=== PATIENT | male | born 1950 | race Caucasian/White ===

== ENCOUNTER → 2016-10-02 | Outpatient (CLI) | payer OTHER ==
[~2016-10-02] MED LIST: OXYC-57 PO; SULF800T23 PO
[2016-10-02 14:43] LABS: URINE APPEARANCE CLEAR (CLEAR); URINE BILIRUBIN NEG (NEG); URINE COLOR YELLOW; URINE NITRITE NEG (NEG); URINE SPECIFIC GRAVITY 1.022 (1.000-1.030); UROBILINOGEN NEG (NEG)
[2016-10-02 14:49] LABS: MANUAL MICROSCOPIC REQUIRED? NO; REVIEW REQ? NO
== END | disposition home or self-care (01) ==
LOC: C.LAB 12:19
PROVIDERS: ATTEND Nurse Practitioner Adult Health
DX: R31.9 Hematuria, unspecified (principal)

== ENCOUNTER 2016-10-29 09:35 | Emergency (ER) | payer OTHER ==
[~2016-10-29] VITALS: Ht 180.3 cm; Wt 103.9 kg
[2016-10-29 09:44] VITALS: TEMP 36.6; Ht 180.3 cm; Wt 103.9 kg
[2016-10-29] MEDS ORDERED: KETOROLAC TROMETHAMINE 30 MG/ML VIAL IV STA (10:36)
[2016-10-29] MEDS ORDERED: HYDROmorphone INJ 1 MG/ML SYR IV STA (10:36)
[2016-10-29] MEDS ORDERED: ONDANSETRON INJ 2 MG/ML 2 ML VIAL IV STA (10:36)
--- NOTE | 2016-10-29 10:42 | EMERGENCY ROOM VISIT NOTE ---
History Report prepared by Neelima: Larry Scales Under the Supervision of: Dr. Ishan Chung M.D. First contact with patient: 09:57 Chief Complaint: FLANK PAIN Stated Complaint: PAIN IN KIDNEY AND ABD. AREA History of Present Illness The patient is a 66 year old male who presents to the Emergency Room with complaints of worsening right flank pain for the past several days. The pain is currently rated 9/10 in severity. He also notes some abdominal pain. The patient was diagnosed with a kidney stone via CT scan approximately two weeks ago at the [place]. The patient was started on Flomax by Urology at the [place]. He has not had anything for pain today. The patient denies any prior history of kidney stones. Source of History: patient Onset: several days Position: back (right flank) Symptom Intensity: 9/10 Quality: other (kidney stone) Timing: worsening Associated Symptoms: + abdominal pain Review of Systems See HPI for pertinent positives & negatives. A total of 10 systems reviewed and were otherwise negative. Past Medical & Surgical Medical Problems: (1) Kidney stone Surgical Problems: (1) H/O heart artery stent Family History Heart disease Kidney disease Social History Smoking Status: Never Smoker Marital Status: Housing Status: lives with family Occupation Status: retired Current/Historical Medications Scheduled Sulfa/Trimethoprim (Bactrim Ds 800MG/160MG), 1 TAB PO BID Scheduled PRN Oxycodone/Acetaminophen 5MG/325MG (Percocet 5MG/325MG), 1-2 TAB PO Q4H PRN for Pain Allergies Uncoded Allergies: NKDA (Allergy, Unknown, 11/14/03) Physical Exam Vital Signs Date Time Temp Pulse Resp B/P Pulse Ox O2 Delivery O2 Flow Rate FiO2 10/29/16 13:36 74 16 108/67 95 10/29/16 12:32 72 16 132/67 96 Room Air 10/29/16 11:30 69 18 112/70 93 Room Air 10/29/16 10:52 66 10/29/16 10:52 71 18 133/78 96 Room Air 10/29/16 09:44 36.6 74 18 148/84 93 Room Air Physical Exam GENERAL: Patient is a healthy-appearing well-nourished HEAD: Normocephalic atraumatic EYES: Ocular movements intact pupils equal and react to light OROPHARYNX mucous membranes are moist no exudates present no erythema or edema present NECK: Supple no nuchal rigidity CHEST: Good equal expansion LUNGS: Clear and equal to auscultation CARDIAC: Normal S1 and S2 ABDOMEN: Soft nontender no guarding BACK: No CVA tenderness EXTREMITIES: No pain upon palpation normal muscle strength in all groups no clubbing cyanosis or edema NEURO: Patient is following commands is answering questions appropriately. Alert and oriented x3 Cranial Nerves 2-12 grossly intact Medical Decision & Procedures ER Provider Diagnostic Interpretation: Radiology results as stated below per my review and radiologist interpretation: KUB CLINICAL HISTORY: Pt c/o Rt sided flank pain pain COMPARISON STUDY: No previous studies for comparison. FINDINGS: Nonobstructive bowel pattern. Possible 3 mm calcification mid right ureter. 4 mm nonobstructing calcifications appear pole left kidney. IMPRESSION: 1. Compromised exam due to overlying bowel content 2. Possible 3 mm calcification overlying the central right ureter. 3. Nonobstructing calcification upper pole left kidney Electronically signed by: Bryant Arnett M.D. 10/29/2016 12:37 PM Dictated Date/Time: 10/29/2016 12:35 PM RENAL ULTRASOUND HISTORY: Flank pain Pt c/o Rt sided flank pain COMPARISON: None. FINDINGS: Right kidney: Maximum dimension 13 cm. Mild right renal hydronephrosis. Normal corticomedullary differentiation and cortical thickness. Left kidney: Maximum dimension 12.8 cm. No evidence for hydronephrosis. 4 mm nonobstructing calculus lower pole. Normal corticomedullary differentiation and cortical thickness. Bladder: No bladder wall thickening. The bilateral ureteral jets were identified. IMPRESSION: Mild right renal hydronephrosis. Electronically signed by: Bryant Arnett M.D. 10/29/2016 12:05 PM Dictated Date/Time: 10/29/2016 12:04 PM Laboratory Results 10/29/16 10:10 Red Blood Count 4.92, Mean Corpuscular Volume 87.2, Mean Corpuscular Hemoglobin 30.5, Mean Corpuscular Hemoglobin Concent 35.0, Mean Platelet Volume 9.1, Neutrophils (%) (Auto) 83.4, Lymphocytes (%) (Auto) 10.1, Monocytes (%) (Auto) 5.2, Eosinophils (%) (Auto) 1.0, Basophils (%) (Auto) 0.2, Neutrophils # (Auto) 8.05, Lymphocytes # (Auto) 0.98, Monocytes # (Auto) 0.50, Eosinophils # (Auto) 0.10, Basophils # (Auto) 0.02 10/29/16 10:10 Test 10/29/16 10:05 10/29/16 10:10 Urine Color DK YELLOW Urine Appearance CLEAR (CLEAR) Urine pH 5.5 (4.5-7.5) Urine Specific [place] 1.022 (1.000-1.030) Urine Protein TRACE (NEG) Urine Glucose (UA) NEG (NEG) Urine Ketones TRACE (NEG) Urine Occult Blood 3+ (NEG) Urine Nitrite NEG (NEG) Urine Bilirubin NEG (NEG) Urine Urobilinogen NEG (NEG) Urine Leukocyte Esterase SMALL (NEG) Urine WBC (Auto) 5-10 /hpf (0-5) Urine RBC (Auto) >30 /hpf (0-4) Urine Hyaline Casts (Auto) 1-5 /lpf (0-5) Urine Epithelial Cells (Auto) 5-10 /lpf (0-5) Urine Bacteria (Auto) NEG (NEG) White Blood Count 9.66 K/uL (4.8-10.8) Red Blood Count 4.92 M/uL (4.7-6.1) Hemoglobin 15.0 g/dL (14.0-18.0) Hematocrit 42.9 % (42-52) Mean Corpuscular Volume 87.2 fL (80-100) Mean Corpuscular Hemoglobin 30.5 pg (25-34) Mean Corpuscular Hemoglobin Concent 35.0 g/dl (32-36) Platelet Count 215 K/uL (130-400) Mean Platelet Volume 9.1 fL (7.4-10.4) Neutrophils (%) (Auto) 83.4 % Lymphocytes (%) (Auto) 10.1 % Monocytes (%) (Auto) 5.2 % Eosinophils (%) (Auto) 1.0 % Basophils (%) (Auto) 0.2 % Neutrophils # (Auto) 8.05 K/uL (1.4-6.5) Lymphocytes # (Auto) 0.98 K/uL (1.2-3.4) Monocytes # (Auto) 0.50 K/uL (0.11-0.59) Eosinophils # (Auto) 0.10 K/uL (0-0.5) Basophils # (Auto) 0.02 K/uL (0-0.2) RDW Standard Deviation 40.3 fL (36.4-46.3) RDW Coefficient of Variation 12.5 % (11.5-14.5) Immature Granulocyte % (Auto) 0.1 % Immature Granulocyte # (Auto) 0.01 K/uL (0.00-0.02) Anion Gap 9.0 mmol/L (3-11) Est Creatinine Clear Calc Drug Dose 95.3 ml/min Estimated GFR () 100.0 Estimated GFR (Non- 86.3 BUN/Creatinine Ratio 14.2 (10-20) Calcium Level 9.0 mg/dl (8.5-10.1) Total Bilirubin 0.6 mg/dl (0.2-1) Direct Bilirubin 0.1 mg/dl (0-0.2) Aspartate Amino Transf (AST/SGOT) 12 U/L (15-37) Alanine Aminotransferase (ALT/SGPT) 27 U/L (12-78) Alkaline Phosphatase 84 U/L (45-117) Total Protein 7.6 gm/dl (6.4-8.2) Albumin 4.1 gm/dl (3.4-5.0) Lipase 102 U/L (73-393) Labs reviewed by ED physician. Medications Administered Medications (Trade) Dose Ordered Sig/Farhad Route Start Time Stop Time Status Last Admin Dose Admin Ketorolac Tromethamine (Toradol Inj) 30 mg NOW STAT IV 10/29/16 10:36 10/29/16 10:44 DC 10/29/16 10:50 30 MG Hydromorphone HCl (Dilaudid Inj) 1 mg NOW STAT IV 10/29/16 10:36 10/29/16 10:44 DC 10/29/16 10:50 1 MG Ondansetron HCl (Zofran Inj) 4 mg NOW STAT IV 10/29/16 10:36 10/29/16 10:44 DC 10/29/16 10:50 4 MG Ceftriaxone Sodium 1 gm 1 gm NOW STAT IV 10/29/16 11:10 10/29/16 11:11 DC 10/29/16 11:28 1 GM Sodium Chloride (Nss 1000ml) 1,000 ml @ 999 mls/hr Q1H1M STAT IV 10/29/16 11:10 10/29/16 12:10 DC 10/29/16 11:29 999 MLS/HR ED Course 1034: Past medical records reviewed. The patient was evaluated in room A12a. A complete history and physical examination was performed. 1036: Zofran 4 mg IV, Dilaudid 1 mg IV, Toradol 30 mg IV. 1110: NSS 1000 ml @ 999 mls/hr, Rocephin 1 gm IV. 1300: Reassessed the patient. His would like for him to be admitted for insurance co-pay. I discussed the treatment plan with them. He verbalized understanding and agreement. The patient is ready for discharge. Medical Decision Differential diagnosis: Etiologies such as renal colic, appendicitis, diverticulitis, mesenteric ischemia, aortic pathology, infections, inflammatory bowel disease, PUD, biliary pathology, UTI, as well as others were entertained. This is a 66-year-old male who presents emergency department complaining of right-sided flank pain. Patient has a history of kidney stones and recent he had a CAT scan performed. For this reason I felt that we could bypass radiation have the patient sent for KUB as well as an ultrasound. This showed mild hydronephrosis and a possible 3 mm stone. An IV was established, patient given Toradol, normal normal saline bolus, Dilaudid. I do believe that the patient will probably pass this on his own he was given pain medication for home. Patient was in agreement with the treatment plan. Impression Primary Impression: Kidney stone Scribe Attestation The scribe's documentation has been prepared under my direction and personally reviewed by me in its entirety. I confirm that the note above accurately reflects all work, treatment, procedures, and medical decision making performed by me. Departure Information Dispostion Home / Self-Care Prescriptions Sulfa/Trimethoprim (Bactrim Ds 800MG/160MG) Tab 1 TAB PO BID for 10 Days, #20 TAB Prov: Ishan Chung MD 10/29/16 Oxycodone/Acetaminophen 5MG/325MG (PERCOCET 5MG/325MG) Tab 1-2 TAB PO Q4H Y for Pain, #14 TAB Prov: Ishan Chung MD 10/29/16 Referrals Ernesto Ghosh M.D. (PCP) Forms HOME CARE DOCUMENTATION FORM, IMPORTANT VISIT INFORMATION, School Instructions, Work Instructions Patient Instructions Kidney Stones - [facility], Kidney Stones Expectant Therapy, Kidney Stones Identify, Kidney Stones Prevent, Kidney Stones Risk, My [facility] Additional Instructions Keep taking flomax You received narcotic or benzodiazepene medication while in the emergency room today. Do not drive, operate heavy machinery, or drink alcohol under the influence of this medication. Take 600 mg Ibuprofen every 6 hours Take Percocet for breakthrough pain You have been examined and treated today on an emergency basis only. This is not a substitute for, or an effort to provide, complete comprehensive medical care. It is impossible to recognize and treat all injuries or illnesses in a single emergency department visit. It is therefore important that you follow up closely with Dr Ghosh. Call as soon as possible for an appointment. Thank you for your time and consideration. I look forward to speaking with you again soon. Please don't hesitate to call us if you have any questions.
[2016-10-29 10:54] LABS: BASO % 0.2 %; BASO ABS # 0.02 K/uL (0-0.2); COMPLETE YES; HEMATOCRIT 42.9 % (42-52); IG% 0.1 %; LYMPH % 10.1 %; LYMPH ABS # 0.98 K/uL (1.2-3.4); MEAN CELL VOLUME 87.2 fL (80-100); MEAN CORPUSCULAR HEMOGLOBIN 30.5 pg (25-34); MEAN PLATELET VOLUME 9.1 fL (7.4-10.4); MONO % 5.2 %; NEUT % 83.4 %; PLATELET COUNT 215 K/uL (130-400); RED BLOOD COUNT 4.92 M/uL (4.7-6.1); WHITE BLOOD COUNT 9.66 K/uL (4.8-10.8)
[2016-10-29 10:57] LABS: URINE APPEARANCE CLEAR (CLEAR); URINE BILIRUBIN NEG (NEG); URINE COLOR DK YELLOW; URINE NITRITE NEG (NEG); URINE PH 5.5 (4.5-7.5); URINE SPECIFIC GRAVITY 1.022 (1.000-1.030); UROBILINOGEN NEG (NEG); ZZUR CULT IF INDIC CLEAN CATCH NO
[2016-10-29 10:58] LABS: MANUAL MICROSCOPIC REQUIRED? NO; REVIEW REQ? NO
[2016-10-29 11:05] LABS: BUN/CREATININE RATIO 14.2 (10-20); CREATININE 0.91 mg/dl (0.60-1.40); POTASSIUM 4.3 mmol/L (3.5-5.1)
[2016-10-29] MEDS ORDERED: SODIUM CHLORIDE 0.9% 1000ML 1,000 ML IV STA (11:10)
[2016-10-29] MEDS ORDERED: CEFTRIAXONE SOD INJ 1 GM ADDVIAL IV STA (11:10)
--- NOTE | 2016-10-29 12:06 | DIAGNOSTIC IMAGING REPORT ---
RENAL ULTRASOUND HISTORY: Flank pain Pt c/o Rt sided flank pain COMPARISON: None. FINDINGS: Right kidney: Maximum dimension 13 cm. Mild right renal hydronephrosis. Normal corticomedullary differentiation and cortical thickness. Left kidney: Maximum dimension 12.8 cm. No evidence for hydronephrosis. 4 mm nonobstructing calculus lower pole. Normal corticomedullary differentiation and cortical thickness. Bladder: No bladder wall thickening. The bilateral ureteral jets were identified. IMPRESSION: Mild right renal hydronephrosis. Electronically signed by: Bryant Arnett M.D. 10/29/2016 12:05 PM Dictated Date/Time: 10/29/2016 12:04 PM
[2016-10-29] MEDS ORDERED: METOCLOPRAMIDE HCL INJ 5 MG/ML 2 ML VIAL IV STA (12:12)
--- NOTE | 2016-10-29 12:38 | DIAGNOSTIC IMAGING REPORT ---
KUB CLINICAL HISTORY: Pt c/o Rt sided flank pain pain COMPARISON STUDY: No previous studies for comparison. FINDINGS: Nonobstructive bowel pattern. Possible 3 mm calcification mid right ureter. 4 mm nonobstructing calcifications appear pole left kidney. IMPRESSION: 1. Compromised exam due to overlying bowel content 2. Possible 3 mm calcification overlying the central right ureter. 3. Nonobstructing calcification upper pole left kidney Electronically signed by: Bryant Arnett M.D. 10/29/2016 12:37 PM Dictated Date/Time: 10/29/2016 12:35 PM
[2016-10-29] MEDS ORDERED: SULF800T23 PO (13:08)
[2016-10-29] MEDS ORDERED: OXYC-57 PO (13:08)
[2016-10-29 13:36] VITALS: BP 108/67; PULSE 74; O2SAT 95
== END 2016-10-29 13:37 | disposition home or self-care (01) ==
LOC: C.EDB 09:36 → C.EDA 13:37
DX: N13.2 Hydronephrosis with renal and ureteral calculous obstruction (principal); Z95.5 Presence of coronary angioplasty implant and graft

== ENCOUNTER 2017-11-04 10:15 | Inpatient (IN) | payer OTHER ==
[~2017-11-04] VITALS: Ht 177.8 cm; Wt 98.3 kg
[~2017-11-04 10:15] MED LIST changes: +ALT/25 PO; +ASPI-435 PO; +ATOR-22 PO; +COEN100C6 PO; +GLUCTAB7 PO; +MULT-506 PO; +OMEG10007 PO; -OXYC-57 PO; -SULF800T23 PO
[2017-11-04] MEDS ORDERED: SODIUM CHLORIDE 0.9% 1000ML 500 ML IV STA (11:26)
--- NOTE | 2017-11-04 11:30 | EMERGENCY ROOM VISIT NOTE ---
History Report prepared by Neelima: Brady Valentine Under the Supervision of: Dr. Haris Sim M.D. First contact with patient: 11:21 Chief Complaint: SHORTNESS OF BREATH Stated Complaint: SOB History of Present Illness The patient is a 67 year old male who presents to the Emergency Room after referral from his primary care physician with complaints of worsening shortness of breath that he has been experiencing for the past several weeks. Per the patient's PCP the patient was complaining of shortness of breath with a cough 3 weeks ago. He was placed on an Azithromycin Pac and then later Levaquin secondary to a diagnosis of pneumonia. The patient states that since finishing these medications he has become even more short of breath. He notes that he cannot walk around his house without becoming winded, which is very unusual for him. He is still coughing, especially when he is laying in bed at night. There is some chest "tightness" but this is only present with the cough. The patient has no history of COPD or myocardial infarction. He has had a coronary stent placed secondary to a blockage, this was roughly 14 years ago. Source of History: patient Onset: 3+ weeks Position: other (Respiratory) Quality: other (SOB) Timing: worsening Modifying Factors (Worsening): exertion (walking), movement Associated Symptoms: + cough, + chest pain (tightness only with cough) Review of Systems See HPI for pertinent positives & negatives. A total of 10 systems reviewed and were otherwise negative. Past Medical & Surgical Medical Problems: (1) Cough (2) Dyspnea (3) Kidney stone Surgical Problems: (1) H/O heart artery stent Family History Heart disease Kidney disease Social History Smoking Status: Never Smoker Marital Status: Housing Status: lives with family Occupation Status: retired Current/Historical Medications Scheduled Aspirin (Aspirin 81), 81 MG PO DAILY Atorvastatin (Lipitor), 20 MG PO HS Coenzyme Q10 (Ubidecarenone) (Co-Enzyme Q10), 1 CAP PO DAILY Fish Oil (Mather-3), 1 CAP PO DAILY Gubuvmjbctk-Ldymkwlmiii-Bwi C- (Glucosamine Chondroitin), 1 TAB PO DAILY Multivitamin (Multivitamin), 1 TAB PO DAILY Ramipril (Altace), 2.5 MG PO QAM Allergies Coded Allergies: No Known Allergies (Unverified , 11/04/17) Physical Exam Vital Signs Date Time Temp Pulse Resp B/P (MAP) Pulse Ox O2 Delivery O2 Flow Rate FiO2 11/04/17 14:55 86 20 123/78 93 11/04/17 13:07 85 18 140/86 93 Room Air 11/04/17 11:36 94 Room Air 11/04/17 10:22 93 Room Air 11/04/17 10:20 36.4 91 18 122/82 93 Room Air Physical Exam GENERAL: Patient is in no acute distress. HEENT: No acute trauma, normocephalic atraumatic, mucous membranes moist, no nasal congestion, no scleral icterus. NECK: No stridor, no adenopathy, no meningismus, trachea is midline. LUNGS: Clear to auscultation bilaterally, no wheeze, no rhonchi, breath sounds equal. HEART: Tachycardic rate with a regular rhythm, no murmurs. ABDOMEN: Soft, nontender, bowel sounds positive, no hernias, no peritonitis. EXTREMITIES: No cyanosis or edema, full range of motion of all the joints without pain or difficulty, no signs for acute trauma. NEUROLOGIC: Oriented x 3, no acute motor or sensory deficits, no focal weakness. SKIN: No rash, no jaundice, no diaphoresis. Medical Decision & Procedures ER Provider Diagnostic Interpretation: Radiology results as stated below per my review and radiologist interpretation: CHEST ONE VIEW PORTABLE CLINICAL HISTORY: EVALUATE RESPIRATORY DISTRESS.DYSPNEA dyspnea COMPARISON STUDY: No previous studies for comparison. FINDINGS: Diffuse interstitial infiltrative change throughout both hemithoraces. This may be acute or chronic. Diaphragms are smooth. There are no consolidative infiltrates. IMPRESSION: Diffuse bilateral parenchymal fibrosis versus diffuse bilateral parenchymal interstitial infiltrative change. The above report was generated using voice recognition software. It may contain grammatical, syntax or spelling errors. Electronically signed by: Bryant Arnett M.D. 11/04/2017 12:12 PM Dictated Date/Time: 11/04/2017 12:12 PM (CHEST FOR PE) ANGIO WITH CT DOSE: 592.10 mGycm HISTORY: 67 years-old Male presents with acute shortness of breath TECHNIQUE: Multiple CTA images of the chest were obtained after the intravenous administration of 93 ml Optiray 320. Coronal and sagittal MIPS were obtained from the axial data set and were submitted for review. A dose lowering technique was utilized adhering to the principles of ALARA. COMPARISON: Chest radiograph of same day. FINDINGS: CTA: Heart is normal in size without pericardial effusion. Coronary arterial disease. The thoracic aorta is normal in course and caliber without aneurysm or dissection. Mild to moderate atherosclerosis of the thoracic aorta. The left vertebral artery emanates strictly from the aortic arch. Imaged great vessels appear to be patent. Mild reflux of contrast into the IVC. The pulmonary arterial tree is opacified to level of the proximal subsegmental branches and demonstrates no focal filling defects to suggest pulmonary thromboembolic disease. CT CHEST: Calcifications are noted within the right thyroid lobe. There are multiple calcified hilar and mediastinal lymph nodes present. Multiple calcified granulomas of the lungs also seen. There are extensive bilateral multilobar distribution of segmental reticular and groundglass opacities within a peripheral apical to basilar predominant distribution. There is of relative sparing are noted bilaterally, notably within the right middle lobe lateral segment. Additionally there is suggestion of mild bilateral interlobular septal thickening. No significant honeycombing or bronchiectasis identified. There is however mild thickening of the bronchi. No significant air trapping identified. Dystrophic airways appear patent. Imaged upper abdominal structures are within normal limits. The bones appear intact. IMPRESSION: 1. Extensive bilateral multilobar distribution of segmental reticular and groundglass opacities within a peripheral apical to basilar predominant distribution are noted with mild thickening of the bronchovascular bundles. No honeycombing or significant traction bronchiectasis identified. These findings suggest NSIP pattern of disease with differential considerations including but not limited to connective tissue disorder, autoimmune disease, drug induced lung disease, occupational exposure or hypersensitivity pneumonitis among other etiologies. Pulmonology consultation recommended. 2. No acute aortic pathology or evidence of pulmonary thromboembolic disease. 3. Prior granulomatous disease. The above report was generated using voice recognition software. It may contain grammatical, syntax or spelling errors. Electronically signed by: Oumar Mora M.D. 11/04/2017 1:43 PM Dictated Date/Time: 11/04/2017 1:30 PM Laboratory Results 11/04/17 11:36 Red Blood Count 5.00, Mean Corpuscular Volume 84.2, Mean Corpuscular Hemoglobin 28.6, Mean Corpuscular Hemoglobin Concent 34.0, Mean Platelet Volume 8.7, Neutrophils (%) (Auto) 61.2, Lymphocytes (%) (Auto) 23.8, Monocytes (%) (Auto) 11.4, Eosinophils (%) (Auto) 2.8, Basophils (%) (Auto) 0.4, Neutrophils # (Auto ) 5.16, Lymphocytes # (Auto) 2.01, Monocytes # (Auto) 0.96, Eosinophils # (Auto ) 0.24, Basophils # (Auto) 0.03 11/04/17 11:36 Test 11/04/17 11:36 11/04/17 11:40 11/04/17 14:31 White Blood Count 8.43 K/uL (4.8-10.8) Red Blood Count 5.00 M/uL (4.7-6.1) Hemoglobin 14.3 g/dL (14.0-18.0) Hematocrit 42.1 % (42-52) Mean Corpuscular Volume 84.2 fL (80-100) Mean Corpuscular Hemoglobin 28.6 pg (25-34) Mean Corpuscular Hemoglobin Concent 34.0 g/dl (32-36) Platelet Count 304 K/uL (130-400) Mean Platelet Volume 8.7 fL (7.4-10.4) Neutrophils (%) (Auto) 61.2 % Lymphocytes (%) (Auto) 23.8 % Monocytes (%) (Auto) 11.4 % Eosinophils (%) (Auto) 2.8 % Basophils (%) (Auto) 0.4 % Neutrophils # (Auto) 5.16 K/uL (1.4-6.5) Lymphocytes # (Auto) 2.01 K/uL (1.2-3.4) Monocytes # (Auto) 0.96 K/uL (0.11-0.59) Eosinophils # (Auto) 0.24 K/uL (0-0.5) Basophils # (Auto) 0.03 K/uL (0-0.2) RDW Standard Deviation 39.7 fL (36.4-46.3) RDW Coefficient of Variation 13.1 % (11.5-14.5) Immature Granulocyte % (Auto) 0.4 % Immature Granulocyte # (Auto) 0.03 K/uL (0.00-0.02) Platelet Estimate NORMAL Anion Gap 6.0 mmol/L (3-11) Est Creatinine Clear Calc Drug Dose 102.8 ml/min Estimated GFR () 105.1 Estimated GFR (Non- 90.7 BUN/Creatinine Ratio 14.9 (10-20) Calcium Level 9.1 mg/dl (8.5-10.1) Magnesium Level 2.3 mg/dl (1.8-2.4) Total Bilirubin 0.4 mg/dl (0.2-1) Aspartate Amino Transf (AST/SGOT) 25 U/L (15-37) Alanine Aminotransferase (ALT/SGPT) 29 U/L (12-78) Alkaline Phosphatase 90 U/L (45-117) Troponin I < 0.015 ng/ml (0-0.045) Total Protein 8.2 gm/dl (6.4-8.2) Albumin 2.9 gm/dl (3.4-5.0) Globulin 5.3 gm/dl (2.5-4.0) Albumin/Globulin Ratio 0.5 (0.9-2) Thyroid Stimulating Hormone (TSH) 2.070 uIu/ml (0.300-4.500) Chemistry Specimen Hemolysis Influenza Type A Antigen Neg for Influ A (NEG) Influenza Type B Antigen Neg for Influ B (NEG) Pro-B-Type Natriuretic Peptide 57 pg/ml (0-900) Laboratory results reviewed by me. Medications Administered Medications (Trade) Dose Ordered Sig/Farhad Route Start Time Stop Time Status Last Admin Dose Admin Sodium Chloride 500 ml @ 999 mls/hr Q31M STAT IV 11/04/17 11:26 11/04/17 11:56 DC 11/04/17 11:54 999 MLS/HR Piperacillin Sod/ Tazobactam Sod (Zosyn Iv) 4.5 gm NOW STAT IV 11/04/17 14:00 11/04/17 14:03 DC 11/04/17 14:43 4.5 GM ECG Per My Interpretation Indication: SOB/dyspnea Rate (beats per minute): 74 Rhythm: normal sinus Findings: other (No ST elevation no PVCs. ) ED Course 1122: The patient was evaluated in room A10. A complete history and physical exam was performed. 1126: Ordered Sodium Chloride 500 mL @ 999 mL/hr IV. 1357: I discussed the case with Dr. Gomez - Pulmonology. He suggests an inpatient stay for the patient. 1400: Ordered Zosyn 4.5 gm IV. 1412: I checked on the patient at this time. He is agreeable to an inpatient stay. 1414: I discussed the case with Dr. Sd Pozo. He will evaluate the patient for further treatment. Medical Decision Differential Diagnosis includes; influenza, pneumonia, bronchitis, CHF, myocardial infarction, anemia, angina, pulmonary embolism. There is no leukocytosis or concerning anemia. No significant electrolyte abnormality, kidney failure or hepatitis. EKG shows a normal sinus rhythm, no acute ischemia. Cardiac enzyme testing 1 is not consistent with acute cardiac injury. Chest x-ray shows diffuse congestion, possibly pulmonary fibrosis or some sort of diffuse pneumonitis. Chest CT does not show PE, the same diffuse pattern was noted throughout the lung parenchyma as seen on chest film. The patient received IV saline. He was given IV Zosyn as antibiotic coverage. The patient's chest x-ray and CT scan are concerning for some sort of diffuse pulmonary disease/infection. This would explain his dyspnea of course. I discussed the case with the bottom polisher. I talked with case management as well as the on-call hospitalist. Further workup within the hospital is required. I spoke to the patient and he does seem in agreement. Medication Reconcilliation Current Medication List: was personally reviewed by me Blood Pressure Screening Patient's blood pressure: Elevated blood pressure Referred to hospitalist Consults Time Called: 1350 Consulting Physician: Dr. Gomez - Pulmonology Returned Call: [phone] I discussed the case with Dr. Patricia Grant Pulluli. He suggests an inpatient stay for the patient. Additional Consults: Time Called: 1410 Consulted Physician: Dr. Sd Pozo Returned Call: [phone] Additional Comments: I discussed the case with Dr. Sd Pozo. He will evaluate the patient for further treatment. Impression Primary Impression: SOB (shortness of breath) Additional Impressions: Pneumonitis Abnormal chest CT Scribe Attestation The scribe's documentation has been prepared under my direction and personally reviewed by me in its entirety. I confirm that the note above accurately reflects all work, treatment, procedures, and medical decision making performed by me. Departure Information Dispostion Being Evaluated By Hospitalist Referrals Ernesto Ghosh M.D. (PCP) Patient Instructions My [facility] Problem Qualifiers
[2017-11-04] MEDS ORDERED: OPTIRAY 320 IV PRN (11:45)
[2017-11-04 12:10] LABS: HEMATOCRIT 42.1 % (42-52); HEMOGLOBIN 14.3 g/dL (14.0-18.0); MEAN CELL VOLUME 84.2 fL (80-100); MEAN CORPUSCULAR HEMOGLOBIN 28.6 pg (25-34); RED CELL DISTRIBUTION WIDTH CV 13.1 % (11.5-14.5); RED CELL DISTRIBUTION WIDTH SD 39.7 fL (36.4-46.3); WHITE BLOOD COUNT 8.43 K/uL (4.8-10.8)
--- NOTE | 2017-11-04 12:14 | DIAGNOSTIC IMAGING REPORT ---
CHEST ONE VIEW PORTABLE CLINICAL HISTORY: EVALUATE RESPIRATORY DISTRESS.DYSPNEA dyspnea COMPARISON STUDY: No previous studies for comparison. FINDINGS: Diffuse interstitial infiltrative change throughout both hemithoraces. This may be acute or chronic. Diaphragms are smooth. There are no consolidative infiltrates. IMPRESSION: Diffuse bilateral parenchymal fibrosis versus diffuse bilateral parenchymal interstitial infiltrative change. The above report was generated using voice recognition software. It may contain grammatical, syntax or spelling errors. Electronically signed by: Bryant Arnett M.D. 11/04/2017 12:12 PM Dictated Date/Time: 11/04/2017 12:12 PM
[2017-11-04 12:28] LABS: ALBUMIN 2.9 gm/dl (3.4-5.0); ALT/SGPT 29 U/L (12-78); AST/SGOT 25 U/L (15-37); BLOOD UREA NITROGEN 12 mg/dl (7-18); CALCIUM 9.1 mg/dl (8.5-10.1); CARBON DIOXIDE 26 mmol/L (21-32); CREATININE 0.81 mg/dl (0.60-1.40); GLUCOSE 99 mg/dl (70-99); POTASSIUM 4.2 mmol/L (3.5-5.1); SODIUM 136 mmol/L (136-145)
[2017-11-04 12:35] LABS: INFLUENZA B ANTIGEN Neg for Influ B (NEG)
[2017-11-04 12:36] LABS: ALKALINE PHOSPHATASE 90 U/L (45-117); TOTAL PROTEIN 8.2 gm/dl (6.4-8.2)
[2017-11-04 12:38] LABS: MEAN PLATELET VOLUME 8.7 fL (7.4-10.4); PLATELET COUNT 304 K/uL (130-400)
[2017-11-04 12:58] LABS: BASO % 0.4 %; BASO ABS # 0.03 K/uL (0-0.2); EOS % 2.8 %; EOS ABS # 0.24 K/uL (0-0.5); IG# 0.03 K/uL (0.00-0.02); LYMPH % 23.8 %; LYMPH ABS # 2.01 K/uL (1.2-3.4); MONO % 11.4 %; MONO ABS # 0.96 K/uL (0.11-0.59); NEUT % 61.2 %; NEUT ABS # 5.16 K/uL (1.4-6.5)
--- NOTE | 2017-11-04 13:44 | DIAGNOSTIC IMAGING REPORT ---
(CHEST FOR PE) ANGIO WITH CT DOSE: 592.10 mGycm HISTORY: 67 years-old Male presents with acute shortness of breath TECHNIQUE: Multiple CTA images of the chest were obtained after the intravenous administration of 93 ml Optiray 320. Coronal and sagittal MIPS were obtained from the axial data set and were submitted for review. A dose lowering technique was utilized adhering to the principles of ALARA. COMPARISON: Chest radiograph of same day. FINDINGS: CTA: Heart is normal in size without pericardial effusion. Coronary arterial disease. The thoracic aorta is normal in course and caliber without aneurysm or dissection. Mild to moderate atherosclerosis of the thoracic aorta. The left vertebral artery emanates strictly from the aortic arch. Imaged great vessels appear to be patent. Mild reflux of contrast into the IVC. The pulmonary arterial tree is opacified to level of the proximal subsegmental branches and demonstrates no focal filling defects to suggest pulmonary thromboembolic disease. CT CHEST: Calcifications are noted within the right thyroid lobe. There are multiple calcified hilar and mediastinal lymph nodes present. Multiple calcified granulomas of the lungs also seen. There are extensive bilateral multilobar distribution of segmental reticular and groundglass opacities within a peripheral apical to basilar predominant distribution. There is of relative sparing are noted bilaterally, notably within the right middle lobe lateral segment. Additionally there is suggestion of mild bilateral interlobular septal thickening. No significant honeycombing or bronchiectasis identified. There is however mild thickening of the bronchi. No significant air trapping identified. Dystrophic airways appear patent. Imaged upper abdominal structures are within normal limits. The bones appear intact. IMPRESSION: 1. Extensive bilateral multilobar distribution of segmental reticular and groundglass opacities within a peripheral apical to basilar predominant distribution are noted with mild thickening of the bronchovascular bundles. No honeycombing or significant traction bronchiectasis identified. These findings suggest NSIP pattern of disease with differential considerations including but not limited to connective tissue disorder, autoimmune disease, drug induced lung disease, occupational exposure or hypersensitivity pneumonitis among other etiologies. Pulmonology consultation recommended. 2. No acute aortic pathology or evidence of pulmonary thromboembolic disease. 3. Prior granulomatous disease. The above report was generated using voice recognition software. It may contain grammatical, syntax or spelling errors. Electronically signed by: Oumar Mora M.D. 11/04/2017 1:43 PM Dictated Date/Time: 11/04/2017 1:30 PM
[2017-11-04] MEDS ORDERED: PIPERACILLIN/TAZOBACTAM 4.5 GM/100ML D5W IV STA (14:00)
[2017-11-04] MEDS ORDERED: ACETAMINOPHEN 325 MG TAB PO PRN (16:00)
[2017-11-04 16:46] VITALS: BP 135/79; PULSE 76; TEMP 36.8; O2SAT 92
--- NOTE | 2017-11-04 16:50 | History and Physical ---
History & Physical Date & Time of Service: Nov 04, 2017 at 16:35 Chief Complaint: SOB Primary Care Physician: Ernesto Ghosh M.D. History of Present Illness 67-year-old male followed by Dr. Ghosh. History of coronary artery disease and a few other problems as noted below. Status post coronary artery stenting several years ago; cardiac status is been stable since then. Physically active and a few months ago was hunting and walking his dog without chest pain or dyspnea. Developed respiratory tract symptoms in September that seemed like a typical cold. Experienced sinus congestion and a congested cough, no significant pharyngitis. No definite fever, but had occasional chills and sweats. Symptoms persisted. He was seen in clinic on 10/11/17 and prescribed a course of azithromycin that did not offer benefit. Re-evaluated in clinic 10/18/17. Chest x-ray demonstrated bilateral infiltrates consistent with pneumonia. Prescribed levofloxacin 500 mg daily for 10 days, prednisone 40 mg daily for 5 days, and albuterol MDI. Noted at best minimal improvement of his symptoms. Finish levofloxacin about 1 week ago. Persistent cough, productive of brownish and sometimes blood-tinged sputum. Increasing dyspnea to the point where he notes significant dyspnea walking from room to room in his home. No fever over the past few days. No chest pain. Retired. Formerly employed at [employer] where he worked in different departments. Exposed to copper, zinc, lead, silver, acidic fumes. No known exposure to asbestos. Has dogs and cats at home; no pet birds. No recent travel history. . Family History Heart disease Kidney disease Mother-diabetes, hypertension Father-heart disease Sister-cancer . Social History Smoking Status: Never Smoker Alcohol Use: occasionally Marital Status: Occupational Status: retired Allergies Coded Allergies: No Known Allergies (Unverified , 11/04/17) Home Medications Scheduled Aspirin (Aspirin 81), 81 MG PO DAILY Atorvastatin (Lipitor), 20 MG PO HS Coenzyme Q10 (Ubidecarenone) (Co-Enzyme Q10), 1 CAP PO DAILY Fish Oil (Erin-3), 1 CAP PO DAILY Pzdcmxtvmsm-Aaecelwywtr-Qmc C- (Glucosamine Chondroitin), 1 TAB PO DAILY Multivitamin (Multivitamin), 1 TAB PO DAILY Ramipril (Altace), 2.5 MG PO QAM Review of Systems Constitutional: + problem reported (As noted above in the HPI) Eyes: No worsening of vision ENT: No nasal symptoms, No sore throat Respiratory: + problem reported (As noted above in HPI) Cardiovascular: No chest pain, No edema, No palpitations Abdomen: No pain, No nausea, No vomiting, No diarrhea, No GI bleeding Musculoskeletal: + joint pain (Knee pain) Genitourinary - Male: + problem reported (Nocturia 1-2 times/night), No hematuria, No dysuria Neurologic: + problem reported (Frontal headaches) Endocrine: No excessive thirst, No excessive urination Hematologic / Lymphatic: No abnormal bleeding/bruising Integumentary: + problem reported (No recent tick bites), No rash, No new/ changing skin lesions Physical Exam Vital Signs Date Time Temp Pulse Resp B/P (MAP) Pulse Ox O2 Delivery O2 Flow Rate FiO2 11/04/17 16:31 73 138/76 92 11/04/17 14:55 86 20 123/78 93 11/04/17 13:07 85 18 140/86 93 Room Air 11/04/17 11:36 94 Room Air 11/04/17 10:22 93 Room Air 11/04/17 10:20 36.4 91 18 122/82 93 Room Air General Appearance: WD/WN, no apparent distress Head: normocephalic, atraumatic Eyes: normal inspection, PERRL, EOMI, sclerae normal, + pertinent finding ( Conjunctivae clear) ENT: normal ENT inspection, hearing grossly normal, + pertinent finding ( Oropharynx clear) Neck: thyroid normal, trachea midline Respiratory/Chest: no respiratory distress, no accessory muscle use, + pertinent finding (Few scattered rhonchi) Cardiovascular: regular rate, rhythm, no edema, no gallop, no JVD, no murmur Abdomen/GI: normal bowel sounds, non tender, soft, no organomegaly, no pulsatile mass Extremities/Musculoskelatal: no calf tenderness, + pertinent finding (No edema ; no digital clubbing) Neurologic/Psych: mammal keeper II-XII nml as tested (PERRL, EOMI, no facial palsy, no dysarthria), no motor/sensory deficits (motor strength extremities grossly intact), alert, normal mood/affect, oriented x 3 Skin: normal color, warm/dry, no rash, + pertinent finding (Seborrheic keratoses) Lymphatic: no adenopathy Diagnostics Laboratory Results Results Past 24 Hours Test 11/04/17 11:36 11/04/17 11:40 11/04/17 14:31 Range/Units White Blood Count 8.43 4.8-10.8 K/uL Red Blood Count 5.00 4.7-6.1 M/uL Hemoglobin 14.3 14.0-18.0 g/dL Hematocrit 42.1 42-52 % Mean Corpuscular Volume 84.2 80-100 fL Mean Corpuscular Hemoglobin 28.6 25-34 pg Mean Corpuscular Hemoglobin Concent 34.0 32-36 g/dl Platelet Count 304 130-400 K/uL Mean Platelet Volume 8.7 7.4-10.4 fL Neutrophils (%) (Auto) 61.2 % Lymphocytes (%) (Auto) 23.8 % Monocytes (%) (Auto) 11.4 % Eosinophils (%) (Auto) 2.8 % Basophils (%) (Auto) 0.4 % Neutrophils # (Auto) 5.16 1.4-6.5 K/uL Lymphocytes # (Auto) 2.01 1.2-3.4 K/uL Monocytes # (Auto) 0.96 0.11-0.59 K/uL Eosinophils # (Auto) 0.24 0-0.5 K/uL Basophils # (Auto) 0.03 0-0.2 K/uL RDW Standard Deviation 39.7 36.4-46.3 fL RDW Coefficient of Variation 13.1 11.5-14.5 % Immature Granulocyte % (Auto) 0.4 % Immature Granulocyte # (Auto) 0.03 0.00-0.02 K/uL Platelet Estimate NORMAL Sodium Level 136 136-145 mmol/L Potassium Level 4.2 3.5-5.1 mmol/L Chloride Level 104 98-107 mmol/L Carbon Dioxide Level 26 21-32 mmol/L Anion Gap 6.0 3-11 mmol/L Blood Urea Nitrogen 12 7-18 mg/dl Creatinine 0.81 0.60-1.40 mg/dl Est Creatinine Clear Calc Drug Dose 102.8 ml/min Estimated GFR () 105.1 Estimated GFR (Non- 90.7 BUN/Creatinine Ratio 14.9 10-20 Random Glucose 99 70-99 mg/dl Calcium Level 9.1 8.5-10.1 mg/dl Magnesium Level 2.3 1.8-2.4 mg/dl Total Bilirubin 0.4 0.2-1 mg/dl Aspartate Amino Transf (AST/SGOT) 25 15-37 U/L Alanine Aminotransferase (ALT/SGPT) 29 12-78 U/L Alkaline Phosphatase 90 45-117 U/L Troponin I < 0.015 0-0.045 ng/ml Total Protein 8.2 6.4-8.2 gm/dl Albumin 2.9 3.4-5.0 gm/dl Globulin 5.3 2.5-4.0 gm/dl Albumin/Globulin Ratio 0.5 0.9-2 Thyroid Stimulating Hormone (TSH) 2.070 0.300-4.500 uIu/ml Chemistry Specimen Hemolysis Influenza Type A Antigen Neg for Influ A NEG Influenza Type B Antigen Neg for Influ B NEG Pro-B-Type Natriuretic Peptide 57 0-900 pg/ml Microbiology Results 11/04/17 Blood Culture, Received Pending 11/04/17 Blood Culture, Received Pending Diagnostic Radiology CHEST ONE VIEW PORTABLE FINDINGS: Diffuse interstitial infiltrative change throughout both hemithoraces. This may be acute or chronic. Diaphragms are smooth. There are no consolidative infiltrates. IMPRESSION: Diffuse bilateral parenchymal fibrosis versus diffuse bilateral parenchymal interstitial infiltrative change. The above report was generated using voice recognition software. It may contain grammatical, syntax or spelling errors. Electronically signed by: Bryant Arnett M.D. 11/04/2017 12:12 PM CTA CHEST IMPRESSION: 1. Extensive bilateral multilobar distribution of segmental reticular and groundglass opacities within a peripheral apical to basilar predominant distribution are noted with mild thickening of the bronchovascular bundles. No honeycombing or significant traction bronchiectasis identified. These findings suggest NSIP pattern of disease with differential considerations including but not limited to connective tissue disorder, autoimmune disease, drug induced lung disease, occupational exposure or hypersensitivity pneumonitis among other etiologies. Pulmonology consultation recommended. 2. No acute aortic pathology or evidence of pulmonary thromboembolic disease. 3. Prior granulomatous disease. The above report was generated using voice recognition software. It may contain grammatical, syntax or spelling errors. Electronically signed by: Oumar Mora M.D. 11/04/2017 1:43 PM Dictated Date/Time: 11/04/2017 1:30 PM . EKG EKG performed at 1136 reviewed and demonstrated normal sinus rhythm at 74/minute , no acute ST or T-wave abnormalities. . Impression Assessment and Plan COUGH / DYSPNEA No prior history of pulmonary disease; good functional status before onset of current illness. Persistent cough and progressive dyspnea as outlined in the history of present illness. Initially treated with course of azithromycin without improvement. Subsequently treated with levofloxacin and prednisone without improvement. Chest x-ray and CT demonstrated bilateral densities as described above. History seems most consistent of infectious process, but consider interstitial lung disease and other etiologies. Will not restart antibiotic therapy or steroids at this time. Consult Pulmonary Medicine. Check 2-step pulse oximetry. CORONARY ARTERY DISEASE No anginal symptoms. No EKG changes. Continue aspirin and statin. VTE PROPHYLAXIS No anticoagulants at this time pending decisions about further diagnostic evaluation. SCDs. Ambulate. RESUSCITATION STATUS Discussed with patient. He does not have a living will. He would like resuscitation attempted in the event of a cardiopulmonary arrest if there is a reasonable chance of a meaningful recovery, but does not want prolonged extraordinary measures if prognosis is poor. Therefore, code status = "Level 1" (full resuscitation). DISPOSITION Admit to medical floor. Expected discharge to home. Family Medicine follow-up with Dr. Ghosh. . Resuscitation Status VTE Prophylaxis Will order VTE Prophylaxis: Yes
[2017-11-04 17:10] VITALS: Ht 177.8 cm; Wt 98.3 kg
[2017-11-04 18:19] LABS: INFLUENZA A PCR Neg for Influ A (NEG); INFLUENZA B PCR Neg for Influ B (NEG)
[2017-11-04 23:21] VITALS: BP 108/66; PULSE 88; TEMP 36.9; O2SAT 91
--- NOTE | 2017-11-05 01:28 | PULMONARY CONSULTATION ---
DATE OF CONSULTATION: 11/04/2017 TIME: 6:10 p.m. REPORT OF CONSULTATION: The patient was seen in room 452, bed 1. He is a 67-year-old male with chief complaint of cough and shortness of breath. His symptoms began in September. Prior to this, he had no respiratory issues. His was ill initially with similar symptoms. She actually had gone to the Emergency Room because of her symptoms. She ultimately cleared up, but as she was getting better, then he was getting sick. At first he was expectorating quite a bit of dark cream colored or yellow sputum. For 2 or 3 days, he coughed up a little blood mixed with it. This was back in September. He ultimately went to his doctor early in October. A chest x-ray was done. The patient does not know the actual results of the x-ray. He thinks they told him he may have pneumonia. Initially, he was treated with Zithromax. Subsequently, he was treated with a second antibiotic. He was not sure what the second antibiotic actually was. The second one seemed to help some. He noticed some decrease in his cough and had decrease in his sputum. Previously, the cough had been so bad that he was waking up frequently during the night time. It probably was Levaquin that he had for the second antibiotic. The patient has been short of breath with minimal exertion. He states his home is 44 feet long and he was winded walking the length of it on the inside. His energy level has been low. His appetite is decreased. He has lost between 15 and 20 pounds in the past 1-2 months. On one night, he had night sweats. On one day, he had chill. He is not aware of having any definite fevers. The patient has not traveled anywhere. He states he has hardly gotten out of the house for the past month. He has 1 dog at home. There is 1 indoor cat and multiple outdoor cats at home. The patient has never smoked. OCCUPATIONAL HISTORY: He worked at a [employer] from 1972 until 2007 where he had exposure to copper, zinc, lead, silver and various acid fumes. PAST SURGICAL HISTORY: Kidney stone removal by cystoscopy. PAST MEDICAL HISTORY: 1. Coronary artery disease with stent. 2. Hypercholesterolemia. 3. Kidney stones. FAMILY HISTORY: Positive for heart disease and kidney problems. SOCIAL HISTORY: Tobacco, never. ETOH -- rare. ALLERGIES: No known allergies. HOME MEDICATIONS: 1. Aspirin 81 mg daily. 2. Atorvastatin 20 mg at bedtime. 3. CoQ10. 4. Fish oil. 5. Glucosamine chondroitin. 6. Multivitamin. 7. Ramipril 2.5 mg daily. REVIEW OF SYSTEMS: Negative except for the above-mentioned complaints. PHYSICAL EXAMINATION: GENERAL: The patient is a pleasant 67-year-old male who is cooperative, alert and oriented. He is in no distress. VITAL SIGNS: Temperature is 36.8. I could not find any evidence of a fever today. HEENT: The patient's pupils are reactive to light. He wears corrective lenses. Nares are clear. Mouth exam is negative. NECK: Palpation of the neck reveals no lymph nodes or masses. HEART: Cardiac rate is 96 beats per minute. Blood pressure is 135/79. The rhythm is regular. LUNGS: Auscultation of the lung hernández reveals them to be well heard bilaterally. There are faint rales heard at the right posterolateral chest area and they are even less well heard on the left side. Oxygen saturation on room air is 92%. Respiratory rate is 18. ABDOMEN: Soft. Bowel sounds are present. There is no tenderness to palpation. EXTREMITIES: Show no cyanosis, clubbing or edema. No rashes are noted. No joint swelling noted. DIAGNOSTIC DATA: The patient's CAT scan of the chest shows multiple calcified hilar and mediastinal lymph nodes present. There are some granulomas of the lung seen as well. More abnormal, however, are extensive bilateral multilobar reticular and ground-glass opacities. There is relative sparing within the right middle lobe lateral segment. No significant honeycombing is present. LABORATORY DATA: White count is 8.43, hemoglobin 14.3, platelets 304,000. Differential showed 61.2 neutrophils, 23.8 lymphs, 11.4 monos, 2.8 eos, 0.4 basophils. Electrolytes show sodium 136, potassium 4.2, chloride 104, bicarb 26, BUN 12, creatinine 0.81. AST, ALT and alkaline phosphatase are normal. Troponin is negative. ProBNP is 57. TSH is 2.07. Total protein 8.2. Globulin a little high at 5.3 and albumin a little low at 2.9. IMPRESSION: 1. Diffuse reticular and ground-glass opacities, both interstitial and alveolar of undetermined origin. 2. Old granulomatous disease. COMMENTS: The patient has subacute symptoms for less than 2 months. He has a markedly abnormal CAT scan. We do not know the results of nor have we seen the chest x-ray done as an outpatient through [facility]. It would be helpful to see that CAT scan. Perhaps, this could be installed into our system for review. We will ask the hospitalist team to do that. The patient's had an infectious type etiology and his seemed similar at first. He was expectorating significant sputum with some blood. The antibiotics did seem to have some benefit to him. However, the x-ray finding now does not look typical for an acute infectious problem. Things such as nonspecific interstitial pneumonia should be considered. Also, things such as sarcoidosis or hypersensitivity pneumonitis could be in the differential diagnosis. Bronchiolitis obliterans would be in the differential diagnosis. RECOMMENDATIONS: 1. Get the chest x-ray as an outpatient installed through our system here if possible. 2. Check a sed rate. 3. TRAY. 4. Angiotensin converting enzyme level. 5. Hypersensitivity pneumonitis profile. 6. Rheumatoid factor. 7. Protein electrophoresis in light of the elevated globulin. 8. Urinalysis, and if shows any blood, we would check an ANCA level. The patient apparently did receive 1 dose of Zosyn. We will discuss the pros and cons of antibiotics now and/or steroids with Dr. Beaver. The possibility of a lung biopsy may need to be considered. Thank you for asking me to assist in his care.
[2017-11-05 07:24] VITALS: BP 108/69; PULSE 85; TEMP 37.1; O2SAT 89
[2017-11-05] MEDS: ENALAPRIL MALEATE 10 MG TAB PO SCH (07:28)
[2017-11-05] MEDS: ASPIRIN 81 MG ECTAB PO SCH (07:28)
--- NOTE | 2017-11-05 09:39 | PULMONARY PROGRESS NOTE ---
DATE: 11/05/2017 TIME: 9:10 a.m. SUBJECTIVE: The patient feels the same. He is still very short of breath with any exertion at all. His cough is mild. I was able with assistance of Dr. Beaver to review his chest x-ray done as an outpatient approximately October 14 or . This showed similar changes bilaterally to what his current x-ray shows but the left-sided infiltrates in are progressed. The patient was treated with steroids for 5 days, at that time he was treated with levofloxacin. He did feel better after the treatments. He thought it was because of the antibiotics, but I suspect it may have been because of the steroids. OBJECTIVE: GENERAL: The patient looks winded today. VITAL SIGNS: Temperature was 37.1. The patient was putting his pajamas on. I checked his pulse ox at that time and it was down to 77% on room air. He also was somewhat tachypneic just doing this small item. His pulse ox this morning on room air had been 89 and that was presumably at rest. The heart rate was 85 per minute. Blood pressure 108/69. LUNGS: Lung hernández revealed very mild rales posteriorly inferiorly. His auscultatory findings are much less pronounced in the chest x-ray would portend. ABDOMEN: Soft and nontender. EXTREMITIES: Showed no cyanosis, clubbing or edema. LABORATORY DATA: Numerous lab studies were ordered yesterday and are not back. We do not even have the sed rate back. Obviously, hypersensitivity, pneumonia tests are not back. IMPRESSIONS: 1. 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 2. Granulomatous lung disease. 3. Cough. COMMENTS: The case was discussed last night and this morning with Dr. Beaver. I believe the patient ultimately will need a lung biopsy. I would prefer if possible to await for some of the lab tests to come back. At the same time, the patient is very symptomatic. I do not think it is feasible to simply send him home without treatment and with oxygen while we are waiting for these. I believe in light of his significant symptoms, we will start him on methylprednisolone. I am starting at 40 mg IV b.i.d. We will see if he has any short term rapid improvement. Perhaps, some of the other studies will be back in the next 2-4 days. We will likely need to decide about a lung biopsy at that time. I discussed this with the patient and he seems comfortable with this approach. The patient has been in droplet isolation. I am doubtful that is necessary with the negative flu test. We are going to make an effort to at least get a baseline spirometry to see how abnormal his lung function is. We will try to get a sputum for culture if possible.
[2017-11-05] MEDS ORDERED: METHYLPREDNISOLONE IV 40 MG in SYRINGE 0 ML IV SCH (11:00)
--- NOTE | 2017-11-05 15:02 | Progress Note ---
Subjective Date of Service: Nov 05, 2017. Subjective Pt evaluation today including: conversation w/ patient, physical exam, lab review, review of studies, review of inpatient medication list Saw/examined the patient in room 452 he is currently on supplemental oxygen states he gets short of breath easily intermittent dry cough Problem List Medical Problems: (1) Abnormal chest CT Status: Acute (2) Pneumonitis Status: Acute Review of Systems Respiratory: + cough, + shortness of breath, + dyspnea on exertion, No sputum, No wheezing, No dyspnea at rest, No hemoptysis Cardiac: No chest pain, No palpitations Medications Current Inpatient Medications Medications (Trade) Dose Ordered Sig/Farhad Route Start Time Stop Time Status Last Admin Dose Admin Ioversol (Optiray 320) 100 ml UD PRN IV 11/04/17 11:45 11/08/17 11:44 Acetaminophen (Tylenol Tab) 650 mg Q4H PRN PO 11/04/17 16:00 12/04/17 15:59 Aspirin (Ecotrin Tab) 81 mg DAILY PO 11/05/17 08:00 12/05/17 07:59 11/05/17 07:28 81 MG Atorvastatin Calcium (Lipitor Tab) 20 mg HS PO 11/05/17 22:00 12/05/17 21:59 Enalapril Maleate (Vasotec Tab) 10 mg QAM PO 11/05/17 08:00 12/05/17 07:59 11/05/17 07:28 10 MG Methylprednisolone Sodium Succinate 40 mg/Syringe 0.64 ml @ 1.5 mls/min BID IV 11/05/17 20:00 12/05/17 19:59 Objective Vital Signs Date Time Temp Pulse Resp B/P (MAP) Pulse Ox O2 Delivery O2 Flow Rate FiO2 11/05/17 08:30 Nasal Cannula 2.0 11/05/17 07:24 37.1 85 18 108/69 (82) 89 Room Air 11/04/17 23:21 36.9 88 22 108/66 (80) 91 Room Air 11/04/17 20:30 Room Air 11/04/17 17:10 Room Air 11/04/17 16:46 36.8 76 18 135/79 (97) 92 Room Air 11/04/17 16:31 73 138/76 92 11/04/17 14:55 86 20 123/78 93 Physical Exam General Appearance: no apparent distress Respiratory/Chest: no respiratory distress, no accessory muscle use, + decreased breath sounds Cardiovascular: regular rate, rhythm, no edema, no murmur Extremities: normal range of motion, non-tender, normal inspection, no pedal edema, no calf tenderness Neurologic/Psychiatric: no motor/sensory deficits, alert, normal mood/affect Laboratory Results Last 24 Hours Test 11/04/17 17:00 11/04/17 20:01 11/04/17 21:10 11/05/17 08:27 Influenza Type A (RT-PCR) Neg for Influ A Influenza Type B (RT-PCR) Neg for Influ B Urine Color YELLOW Urine Appearance CLEAR Urine pH 6.0 Urine Specific [place] > 1.045 Urine Protein NEG Urine Glucose (UA) NEG Urine Ketones NEG Urine Occult Blood NEG Urine Nitrite NEG Urine Bilirubin NEG Urine Urobilinogen NEG Urine Leukocyte Esterase NEG Erythrocyte Sedimentation Rate 71 mm/hr Assessment and Plan This is a 67 year old male with a PMH of CAD s/p stent, HTN, HLD - presents with worsening shortness of breath Diffuse interstitial lung disease Granulomatous disease appreciate pulmonary input at this point, hypersensitivity pneumonitis w/up is pending Solu-medrol 40mg q12 added currently on supplemental O2 no antibiotics needed at this point CAD s/p stent continue aspirin, statin not on a b-matt; continue KIKO-I DVT ppx SCDs FULL CODE
[2017-11-05 16:03] VITALS: BP 100/65; PULSE 83; TEMP 37; O2SAT 94
[2017-11-05] MEDS: METHYLPREDNISOLONE IV 40 MG in SYRINGE 0 ML IV SCH (20:31)
[2017-11-05] MEDS: ATORVASTATIN 20 MG TAB PO SCH (20:31)
[2017-11-06 00:12] VITALS: BP 120/72; PULSE 80; TEMP 36.7; O2SAT 92
[2017-11-06 07:31] VITALS: BP 119/73; PULSE 85; TEMP 36.8; O2SAT 92
[2017-11-06] MEDS: METHYLPREDNISOLONE IV 40 MG in SYRINGE 0 ML IV SCH ×2 (07:40→20:56)
[2017-11-06] MEDS: ASPIRIN 81 MG ECTAB PO SCH (07:40)
[2017-11-06] MEDS: ENALAPRIL MALEATE 10 MG TAB PO SCH (07:40)
[2017-11-06 08:03] LABS: HEMATOCRIT 42.3 % (42-52); HEMOGLOBIN 14.3 g/dL (14.0-18.0); MEAN CELL VOLUME 84.4 fL (80-100); MEAN CORPUSCULAR HEMOGLOBIN 28.5 pg (25-34); MEAN CORPUSCULAR HGB CONC 33.8 g/dl (32-36); MEAN PLATELET VOLUME 8.7 fL (7.4-10.4); PLATELET COUNT 328 K/uL (130-400); RED CELL DISTRIBUTION WIDTH CV 12.7 % (11.5-14.5); RED CELL DISTRIBUTION WIDTH SD 38.8 fL (36.4-46.3); WHITE BLOOD COUNT 12.34 K/uL (4.8-10.8)
[2017-11-06 08:34] LABS: CALCIUM 9.2 mg/dl (8.5-10.1); CREATININE 0.68 mg/dl (0.60-1.40); POTASSIUM 4.2 mmol/L (3.5-5.1)
--- NOTE | 2017-11-06 13:06 | PULMONARY PROGRESS NOTE ---
DATE: 11/06/2017 TIME: 12:40 p.m. SUBJECTIVE: The patient feels the same. He has had IV steroids for 24 hours and has not noticed any improvement in his breathing. He is still short of breath just getting up to go to the bathroom. He is not having much cough and has been no sputum. He has had no chills, fevers or sweats. The patient can feel some palpitations. OBJECTIVE: GENERAL: The patient looked comfortable. VITAL SIGNS: Temperature was 36.8. There has been no significant fevers. Heart rate is 85 per minute. CARDIOVASCULAR: Frequent extrasystoles were heard. At times it was every 3rd or 4th beat. He relates that his primary doctor had noticed that as well. His EKG on admission did not show extra beats. LUNGS: Lung hernández revealed slightly decreased breath sounds. Very mild rales were heard. Nothing as prominent as one would expect considering the CAT scan findings. Respiratory rate is 20. Saturation was 95% on 2 liters at rest. EXTREMITIES: Showed no cyanosis, clubbing or edema. LABORATORY DATA: White count today is 12.34 and this is increased from 8.43. Electrolytes today are normal. BUN is 16 with a creatinine of 0.88. Many other studies are still pending. As noted yesterday, the sed rate was elevated at 71. IMPRESSIONS: Diffuse lung disease -- mainly interstitial -- undetermined etiology. COMMENTS AND RECOMMENDATIONS: It appears the patient likely will need a lung biopsy. On exam today, he has frequent extrasystoles. I believe we should transfer the patient to a monitored bed. We should be able to see what his rhythm is doing prior to subjecting him to a thoracic surgery. It is possible a cardiac evaluation might be necessary. The patient questioned if I thought that he could be communicating an infection to other people and I told him I thought that was less likely. His lack of afebrile response seems to suggest that I believe I am not strongly suspicious for an infection producing this process. He is short of breath getting into the bathroom. We need to get a longer oxygen tubing to assist with that. Will discuss with Dr. Hannah.
--- NOTE | 2017-11-06 13:58 | Progress Note ---
Subjective Date of Service: Nov 06, 2017. Subjective Pt evaluation today including: conversation w/ patient, conversation w/ family , physical exam, lab review, review of studies, conversation w/ business analysis consultant, review of inpatient medication list Saw/examined the patient in room 452 He states there has not been much of an improvement overnight with the steroid use still dependent on O2, with any exertion, his O2 sats drop denies palpitations, but was told about irregular heart beats in the past by primary care Problem List Medical Problems: (1) Abnormal chest CT Status: Acute (2) Pneumonitis Status: Acute Review of Systems Constitutional: No fever, No chills Respiratory: + shortness of breath, + dyspnea on exertion, No cough, No sputum , No wheezing Cardiac: No chest pain, No edema, No palpitations Medications Current Inpatient Medications Medications (Trade) Dose Ordered Sig/Farhad Route Start Time Stop Time Status Last Admin Dose Admin Ioversol (Optiray 320) 100 ml UD PRN IV 11/04/17 11:45 11/08/17 11:44 Acetaminophen (Tylenol Tab) 650 mg Q4H PRN PO 11/04/17 16:00 12/04/17 15:59 Aspirin (Ecotrin Tab) 81 mg DAILY PO 11/05/17 08:00 12/05/17 07:59 11/06/17 07:40 81 MG Atorvastatin Calcium (Lipitor Tab) 20 mg HS PO 11/05/17 22:00 12/05/17 21:59 11/05/17 20:31 20 MG Enalapril Maleate (Vasotec Tab) 10 mg QAM PO 11/05/17 08:00 12/05/17 07:59 11/06/17 07:40 10 MG Methylprednisolone Sodium Succinate 40 mg/Syringe 0.64 ml @ 1.5 mls/min BID IV 11/05/17 20:00 12/05/17 19:59 11/06/17 07:40 1.5 MLS/MIN Objective Vital Signs Date Time Temp Pulse Resp B/P (MAP) Pulse Ox O2 Delivery O2 Flow Rate FiO2 11/06/17 08:30 Nasal Cannula 2.0 11/06/17 07:31 36.8 85 20 119/73 (88) 92 Nasal Cannula 2.0 11/06/17 00:20 Nasal Cannula 2.0 3/3/18 00:12 36.7 80 22 120/72 (88) 92 Nasal Cannula 2.0 11/05/17 20:00 Nasal Cannula 2.0 11/05/17 16:30 Nasal Cannula 2.0 11/05/17 16:03 37.0 83 18 100/65 (77) 94 Nasal Cannula 2.0 Physical Exam General Appearance: no apparent distress Respiratory/Chest: chest non-tender, lungs clear, normal breath sounds, no respiratory distress, no accessory muscle use Cardiovascular: no edema, no murmur, + irregularly irregular Extremities: normal inspection, no pedal edema Laboratory Results Last 24 Hours Test 11/06/17 07:21 White Blood Count 12.34 K/uL Red Blood Count 5.01 M/uL Hemoglobin 14.3 g/dL Hematocrit 42.3 % Mean Corpuscular Volume 84.4 fL Mean Corpuscular Hemoglobin 28.5 pg Mean Corpuscular Hemoglobin Concent 33.8 g/dl RDW Standard Deviation 38.8 fL RDW Coefficient of Variation 12.7 % Platelet Count 328 K/uL Mean Platelet Volume 8.7 fL Sodium Level 136 mmol/L Potassium Level 4.2 mmol/L Chloride Level 103 mmol/L Carbon Dioxide Level 26 mmol/L Anion Gap 7.0 mmol/L Blood Urea Nitrogen 16 mg/dl Creatinine 0.68 mg/dl Est Creatinine Clear Calc Drug Dose 118.7 ml/min Estimated GFR () 112.9 Estimated GFR (Non- 97.4 BUN/Creatinine Ratio 23.6 Random Glucose 151 mg/dl Calcium Level 9.2 mg/dl Assessment and Plan This is a 67 year old male with a PMH of CAD s/p stent, HTN, HLD - presents with worsening shortness of breath Diffuse interstitial lung disease Granulomatous disease 11/06 patient is doing okay, still requiring O2 continue IV steroids will transfer to tele to monitor for PVCs may need biopsy in 1-2 days; possible cardiology input prior to biopsy reference labs for hypersensitivity pneumonitis is pending 11/05 appreciate pulmonary input at this point, hypersensitivity pneumonitis w/up is pending Solu-medrol 40mg q12 added currently on supplemental O2 no antibiotics needed at this point CAD s/p stent continue aspirin, statin not on a b-matt; continue KIKO-I DVT ppx SCDs FULL CODE
[2017-11-06 15:25] VITALS: BP 109/55; PULSE 87; TEMP 36.8; O2SAT 94
[2017-11-06 16:37] VITALS: BP 122/64; PULSE 101; TEMP 36.5; O2SAT 95
[2017-11-06 19:33] VITALS: BP 134/65; PULSE 82; TEMP 36.5; O2SAT 96
[2017-11-06] MEDS: ATORVASTATIN 20 MG TAB PO SCH (20:55)
[2017-11-06 23:45] VITALS: BP 118/73; PULSE 81; TEMP 36.7; O2SAT 97
[2017-11-07 03:52] VITALS: BP 124/76; PULSE 80; TEMP 36.7; O2SAT 93
[2017-11-07 04:00] VITALS: O2SAT 97
[2017-11-07 07:24] LABS: HEMATOCRIT 43.6 % (42-52); HEMOGLOBIN 14.6 g/dL (14.0-18.0); MEAN CORPUSCULAR HEMOGLOBIN 28.5 pg (25-34); MEAN CORPUSCULAR HGB CONC 33.5 g/dl (32-36); MEAN PLATELET VOLUME 8.6 fL (7.4-10.4); PLATELET COUNT 397 K/uL (130-400); RED CELL DISTRIBUTION WIDTH CV 12.8 % (11.5-14.5); WHITE BLOOD COUNT 22.92 K/uL (4.8-10.8)
[2017-11-07 07:55] LABS: CALCIUM 9.5 mg/dl (8.5-10.1); CREATININE 0.83 mg/dl (0.60-1.40); POTASSIUM 3.9 mmol/L (3.5-5.1)
--- NOTE | 2017-11-07 08:06 | Progress Note ---
Subjective Date of Service: Nov 07, 2017. Subjective Pt evaluation today including: conversation w/ patient, physical exam, lab review, review of studies, review of inpatient medication list Saw/examined the patient in room 201 He's doing well, no problems/issues to note today Continuing to require oxygen Problem List Medical Problems: (1) Abnormal chest CT Status: Acute (2) Pneumonitis Status: Acute Review of Systems Constitutional: No fever, No chills Respiratory: + shortness of breath, + dyspnea on exertion, No cough, No sputum , No wheezing Cardiac: No chest pain, No edema, No palpitations Medications Current Inpatient Medications Medications (Trade) Dose Ordered Sig/Farhad Route Start Time Stop Time Status Last Admin Dose Admin Ioversol (Optiray 320) 100 ml UD PRN IV 11/04/17 11:45 11/08/17 11:44 Acetaminophen (Tylenol Tab) 650 mg Q4H PRN PO 11/04/17 16:00 12/04/17 15:59 Aspirin (Ecotrin Tab) 81 mg DAILY PO 11/05/17 08:00 12/05/17 07:59 11/06/17 07:40 81 MG Atorvastatin Calcium (Lipitor Tab) 20 mg HS PO 11/05/17 22:00 12/05/17 21:59 11/06/17 20:55 20 MG Enalapril Maleate (Vasotec Tab) 10 mg QAM PO 11/05/17 08:00 12/05/17 07:59 11/06/17 07:40 10 MG Methylprednisolone Sodium Succinate 40 mg/Syringe 0.64 ml @ 1.5 mls/min BID IV 11/05/17 20:00 12/05/17 19:59 11/06/17 20:56 1.5 MLS/MIN Objective Vital Signs Date Time Temp Pulse Resp B/P (MAP) Pulse Ox O2 Delivery O2 Flow Rate FiO2 11/07/17 04:00 97 Nasal Cannula 2.0 11/07/17 03:52 36.7 80 18 124/76 (92) 93 11/06/17 23:45 36.7 81 18 118/73 (88) 97 Nasal Cannula 2.0 11/06/17 23:45 97 Nasal Cannula 2.0 11/06/17 19:33 36.5 82 20 134/65 (88) 96 Nasal Cannula 2.0 11/06/17 19:30 Nasal Cannula 2.0 11/06/17 16:37 36.5 101 24 122/64 (83) 95 Nasal Cannula 2.0 11/06/17 16:15 Nasal Cannula 2.0 11/06/17 15:25 36.8 87 18 109/55 (73) 94 Nasal Cannula 2.0 11/06/17 08:30 Nasal Cannula 2.0 Physical Exam General Appearance: no apparent distress Respiratory/Chest: chest non-tender, lungs clear, normal breath sounds, no respiratory distress, no accessory muscle use Cardiovascular: regular rate, rhythm, no edema, no murmur Extremities: normal range of motion, non-tender, normal inspection, no pedal edema, no calf tenderness Neurologic/Psychiatric: no motor/sensory deficits, alert, normal mood/affect Laboratory Results Last 24 Hours Test 11/07/17 06:18 White Blood Count 22.92 K/uL Red Blood Count 5.13 M/uL Hemoglobin 14.6 g/dL Hematocrit 43.6 % Mean Corpuscular Volume 85.0 fL Mean Corpuscular Hemoglobin 28.5 pg Mean Corpuscular Hemoglobin Concent 33.5 g/dl RDW Standard Deviation 39.0 fL RDW Coefficient of Variation 12.8 % Platelet Count 397 K/uL Mean Platelet Volume 8.6 fL Sodium Level 137 mmol/L Potassium Level 3.9 mmol/L Chloride Level 102 mmol/L Carbon Dioxide Level 26 mmol/L Anion Gap 9.0 mmol/L Blood Urea Nitrogen 19 mg/dl Creatinine 0.83 mg/dl Est Creatinine Clear Calc Drug Dose 98.0 ml/min Estimated GFR () 104.1 Estimated GFR (Non- 89.8 BUN/Creatinine Ratio 22.3 Random Glucose 136 mg/dl Calcium Level 9.5 mg/dl Assessment and Plan This is a 67 year old male with a PMH of CAD s/p stent, HTN, HLD - presents with worsening shortness of breath Diffuse interstitial lung disease Granulomatous disease 3/ currently on 2L of O2 continue IV steroids currently on tele, sinus rhythm noted possible biopsy? appreciate pulm input 11/06 patient is doing okay, still requiring O2 continue IV steroids will transfer to tele to monitor for PVCs may need biopsy in 1-2 days; possible cardiology input prior to biopsy reference labs for hypersensitivity pneumonitis is pending 11/05 appreciate pulmonary input at this point, hypersensitivity pneumonitis w/up is pending Solu-medrol 40mg q12 added currently on supplemental O2 no antibiotics needed at this point CAD s/p stent continue aspirin, statin not on a b-matt; continue KIKO-I DVT ppx SCDs FULL CODE
[2017-11-07] MEDS: ENALAPRIL MALEATE 10 MG TAB PO SCH (08:21)
[2017-11-07] MEDS: METHYLPREDNISOLONE IV 40 MG in SYRINGE 0 ML IV SCH ×2 (08:21→20:43)
[2017-11-07] MEDS: ASPIRIN 81 MG ECTAB PO SCH (08:21)
[2017-11-07 08:34] VITALS: BP 127/77; PULSE 82; TEMP 36.8; O2SAT 96
[2017-11-07 12:36] VITALS: BP 148/82; PULSE 72; TEMP 36.4; O2SAT 96
--- NOTE | 2017-11-07 12:55 | PULMONARY PROGRESS NOTE ---
DATE: 11/07/2017 TIME: 11:50 a.m. SUBJECTIVE: The patient still feels short of breath. He has not noticed significant improvement, but I do believe he is definitely less short of breath than when I have seen him previously. He has just a slight cough. There has been no mucus. He was transferred to tele yesterday because of hearing a lot of extrasystoles. Since he has been here, he has had very few extrasystoles. I did see one PVC after watching on the monitor for 3 minutes. OBJECTIVE: GENERAL: The patient was not in any distress. VITAL SIGNS: Temperature is 36.8. HEART: Heart rate is 80 per minute. The rhythm was regular with a rare extrasystole on tele, but none heard when I examined him. CHEST: Auscultation of the lung hernández reveals very fine rales. The respiratory rate was 18. Blood pressure 127/77. I ambulated the patient in his room with O2 at 2 liters. He walked for a minute or two. His saturations went down to 89%. He was clearly not working as hard as he had been 2 days ago prior to the initiation of steroids. IMPRESSIONS: 1. Diffuse interstitial lung disease. 2. Shortness of breath with hypoxia. COMMENTS AND RECOMMENDATIONS: I spoke with the patient again regarding his entire situation. He is clinically somewhat improved after having methylprednisolone for 2 days. However, I believe he should have a lung biopsy to make a definitive diagnosis as much as possible. He has not had any arrhythmia. That was part of my concern as to evaluating that before a biopsy. The patient himself is anxious for definitive diagnosis if we can make it. We will put in a consult to Dr. Conteh and see what his opinion is regarding a lung biopsy.
--- NOTE | 2017-11-07 15:40 | SURGICAL CONSULTATION ---
DATE OF CONSULTATION: 11/07/2017 REASON FOR CONSULTATION: Evaluate for lung biopsy. HISTORY OF PRESENT ILLNESS: This is a delightful 67-year-old physically active man who was in his usual state of health which included walking a few miles with his dog daily when he had signs and symptoms consistent with an upper respiratory infection. His actually had an upper respiratory infection first. He felt that he "got it from her." He had a cough productive of yellow sputum and cream-colored sputum but this was several weeks ago. In October, he was told after an x-ray that he may have a pneumonia, was put on antibiotics. He did not improve and was treated with a second type of antibiotic. He is also started on steroids. He felt that he was improved, but finally came in as he was short of breath. He had difficulty sleeping. He went from being able to walk 2 miles with being unable to walk the length of his home, which is 44 feet. He has also lost almost 20 pounds in the last 2 months or so. He has had intermittent and very occasional sweats and chills. He was admitted here a few days ago and was found to have pulmonary infiltrates. Yet is unclear what is causing this man's symptoms. He has calcified lymph nodes in his mediastinum. Dr. Gomez asked if I would evaluate him and consider a lung biopsy. PAST MEDICAL HISTORY: 1. Coronary artery disease. 2. Hypercholesterolemia. 3. History of nephrolithiasis. PAST SURGICAL HISTORY: 1. Percutaneous transluminal angioplasty and stent. 2. Cystoscopy with kidney stone extraction. MEDICATIONS (AT HOME): 1. Ramipril. 2. Aspirin. 3. Atorvastatin. 4. Multivitamins. ALLERGIES: No known drug allergies. SOCIAL HISTORY: The patient lives with his . His only daughter lives very close to him. She has just had her first child through his formidable granddaughter close to him. His continues to work. 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 He does do some part-time work. FAMILY MEDICAL HISTORY: The patient actually comes from a family with long lives. He had an aunt who made it to 98. His father lived to be 87 and from a coronary artery disease. Mother at 73 and also had coronary artery disease. He has a sister and interestingly enough, was 6 years older and is on oxygen. It is unclear what the etiology of her lung problems are. The patient's daughter and granddaughter are healthy. REVIEW OF SYSTEMS: The patient has lost weight as mentioned above. He is markedly short of breath and is on oxygen. He denies any GI or complaints. He has had no joint effusions. He has had no peripheral edema. He denies palpitations. He has had no skin breakdown. He does wear glasses but denies any visual or auditory symptoms. He has had no neurologic symptoms such as amaurosis fugax. He has had no seizures. PHYSICAL EXAMINATION: GENERAL: This is a well-developed, well-nourished male, who is awake, alert and oriented. He stands 5 feet 10 inches tall and weighs 213 pounds. HEENT: His extraocular movements are intact. Pupils are equal, round and reactive. Sclerae are anicteric. He has no nasolabial flattening. His tongue is midline. He has normal mucosal lesions. His teeth are in excellent repair. NECK: Supple. He has no supraclavicular or cervical lymphadenopathy or neck vein distention. He has no carotid bruits. LUNGS: He has no wheezing but does have decreased breath sounds and I think is a bit more posterior in the right than the left. HEART: He has a regular rate and rhythm of his heart. ABDOMEN: Soft, nontender. EXTREMITIES: He has easily palpable peripheral pulses. He has no joint effusions. He has no peripheral edema. NEUROLOGIC: He is completely intact. He is awake, alert and oriented with no cranial nerve deficits. DATA: I reviewed his CT scan and he does have pulmonary infiltrates with relative sparing of the right middle lobe. He also has some calcified lymphadenopathy in the mediastinum and hilar area. ASSESSMENT AND PLAN: Hypoxia with pulmonary infiltrates. I agree this patient needs a lung biopsy and we are going to offer this to him tomorrow. We will also do a lymph node biopsy while there.
[2017-11-07 16:01] VITALS: BP 131/78; PULSE 78; TEMP 36.7; O2SAT 96
--- NOTE | 2017-11-07 16:16 | PULMONARY FUNCTION TEST ---
INTERPRETATION: Spirometry shows a mild to moderate decrease in forced vital capacity and FEV1 with a very mildly decreased FEV1/FVC ratio. This is suggestive for probable coexistent mild obstruction as well as restriction. Repeat study done following bronchodilator showed no change in function.
[2017-11-07 19:25] VITALS: BP 124/75; PULSE 75; TEMP 36.7; O2SAT 95
[2017-11-07] MEDS: ATORVASTATIN 20 MG TAB PO SCH (20:43)
[2017-11-08] VITALS (12 sets, daily range): BP systolic 111–155; BP diastolic 66–93; PULSE 62–91; TEMP 36.5–36.8; O2SAT 93–97
[2017-11-08] MEDS ORDERED: SODIUM CHLORIDE 0.9% PF 50 ML VIAL ONE ×2 (07:05→07:06)
[2017-11-08] MEDS ORDERED: BUPIVACAINE LIPOSOME 1/3% 266 MG/20 ML VIAL INFIL ONE (07:06)
[2017-11-08] MEDS ORDERED: BUPIVACAINE 0.5 % 5 MG/1 ML MPF 30ML VIAL ONE (07:06)
[2017-11-08] MEDS ORDERED: GLYCOPYRROLATE INJ 0.2 MG/ML VIAL ONE ×2 (07:14→08:52)
[2017-11-08] MEDS ORDERED: PROPOFOL IV EMULSION 10 MG/ML 20 ML VIAL IV ONE (07:14)
[2017-11-08] MEDS ORDERED: ONDANSETRON INJ 2 MG/ML 2 ML VIAL ONE (07:14)
[2017-11-08] MEDS ORDERED: LIDOCAINE HCL 2% 2 ML VIAL (20MG/ML) ONE (07:14)
[2017-11-08] MEDS ORDERED: MIDAZOLAM HCL 1 MG/ML 2ML VIAL ONE (07:14)
[2017-11-08] MEDS ORDERED: NEOSTIGMINE METHYLSULFATE 5 MG/5 ML SYR ONE (07:14)
[2017-11-08] MEDS ORDERED: FENTANYL CITRATE INJ 50 MCG/1 ML 2 ML VIAL ONE (07:14)
[2017-11-08] MEDS ORDERED: DEXAMETHASONE SOD INJ 4 MG/ML VIAL ONE (07:14)
--- NOTE | 2017-11-08 07:34 | History & Physical Bridge Note ---
H&P Re-Evaluation Bridge Note: I have examined the patient, reviewed the History & Physical and in the interval since the performance of the History & Physical I have noted the following changes of clinical significance: No changes noted
[2017-11-08] MEDS ORDERED: SODIUM CHLORIDE 0.9% INJ 10 ML VIAL ONE (08:09)
[2017-11-08] MEDS ORDERED: CEFAZOLIN SOD 1 GM VIAL ONE (08:09)
[2017-11-08] MEDS ORDERED: HYDROCORTISONE SOD SUCCINATE 100 MG/2 ML VIAL ONE (08:09)
--- NOTE | 2017-11-08 09:00 | [facility] Post Operative Brief Note ---
Immediate Operative Summary Operative Date Nov 08, 2017. Pre-Operative Diagnosis Pulmonary infiltrates unknown etiology Post-Operative Diagnosis Same Procedure(s) Performed Thoracoscopic right lung biopsy X 3 Surgeon Wero Claims Manager Surgeon(s) Polo Estimated Blood Loss 5 cc's Findings Consistent with Post-Op Diagnosis Specimens Right upper lobe X 1, right lower lobe X 2 Drains one 24 fr. chest tube Anesthesia Type General Complication(s) none Disposition Disposition: Recovery Room / PACU
[2017-11-08] MEDS ORDERED: OXYCODONE HCL IR 5 MG TAB (IMMEDIATE RELEASE) PO PRN (09:15)
[2017-11-08] MEDS ORDERED: ONDANSETRON INJ 2 MG/ML 2 ML VIAL IV PRN (09:15)
[2017-11-08] MEDS ORDERED: MoRPHine SULFATE 2 MG/ML CARP IV PRN (09:15)
--- NOTE | 2017-11-08 09:45 | DIAGNOSTIC IMAGING REPORT ---
CHEST ONE VIEW PORTABLE HISTORY: 67 years-old Male right lung biopsy status post right lung biopsy COMPARISON: Chest radiograph 11/04/2017, CTA chest 11/04/2017 TECHNIQUE: Portable AP view the chest FINDINGS: Cardiac silhouette is mildly enlarged. Calcified hilar lymph nodes are again noted. Right-sided chest tube is in place with distal tip terminating adjacent to the right lung apex. No definite right-sided pneumothorax identified. Bilateral reticular and hazy groundglass opacities are redemonstrated, left greater than right. No pneumothorax or pleural effusion. Mild right hemidiaphragm elevation. Degenerative changes noted within the shoulders and spine. IMPRESSION: 1. Right-sided chest tube in place with distal tip adjacent to the right lung apex. No definite postprocedural pneumothorax identified. 2. Persistent bilateral mixed interstitial and alveolar opacities are again noted bilaterally, left greater than right. These findings are better seen and described on comparison CTA of the chest 11/04/2017 consistent with interstitial lung disease. The above report was generated using voice recognition software. It may contain grammatical, syntax or spelling errors. Electronically signed by: Oumar Mora M.D. 11/08/2017 9:43 AM Dictated Date/Time: 11/08/2017 9:40 AM
[2017-11-08] MEDS ORDERED: D5W AND 1/2NSS 1,000 ML IV SCH (10:00)
--- NOTE | 2017-11-08 10:09 | Anesthesiology Progress Note ---
Anesthesia Post Op Note Date & Time Nov 08, 2017 at 10:09 Vital Signs Pain Intensity: 0 Vital Signs Past 12 Hours Date Time Temp Pulse Resp B/P (MAP) Pulse Ox O2 Delivery O2 Flow Rate FiO2 11/08/17 10:01 141/86 11/08/17 09:58 65 14 93 11/08/17 09:58 64 14 11/08/17 09:57 143/90 11/08/17 09:54 36.5 61 18 145/93 (109) 94 Nasal Cannula 2 11/08/17 09:53 61 19 11/08/17 09:53 62 19 94 11/08/17 09:52 69 18 11/08/17 09:52 69 18 140/80 94 11/08/17 09:47 68 20 95 11/08/17 09:47 69 20 11/08/17 09:46 141/86 11/08/17 09:42 69 14 97 11/08/17 09:42 68 14 11/08/17 09:41 65 17 143/86 98 11/08/17 09:41 66 17 11/08/17 09:36 75 14 11/08/17 09:36 75 14 148/86 97 11/08/17 09:32 138/86 11/08/17 09:31 64 21 97 11/08/17 09:31 64 21 11/08/17 09:28 152/85 11/08/17 09:26 36.2 69 20 152/85 (109) 96 Oxymask 10 11/08/17 06:54 36.6 70 18 138/83 (101) 96 Room Air 11/08/17 04:00 Nasal Cannula 2.0 11/08/17 03:32 36.7 62 16 151/80 (103) 95 11/08/17 00:09 36.7 72 18 111/76 (88) 96 2.0 11/07/17 23:59 Nasal Cannula 2.0 Notes Mental Status: alert / awake / arousable, participated in evaluation Pt Amnestic to Procedure: Yes Nausea / Vomiting: adequately controlled Pain: adequately controlled Airway Patency, RR, SpO2: stable & adequate BP & HR: stable & adequate Hydration State: stable & adequate Anesthetic Complications: no major complications apparent
[2017-11-08] MEDS: ASPIRIN 81 MG ECTAB PO SCH (11:05)
[2017-11-08] MEDS: ENALAPRIL MALEATE 10 MG TAB PO SCH (11:05)
[2017-11-08] MEDS: METHYLPREDNISOLONE IV 40 MG in SYRINGE 0 ML IV SCH ×2 (11:05→21:50)
--- NOTE | 2017-11-08 11:46 | Progress Note ---
Subjective Date of Service: Nov 08, 2017. Subjective Pt evaluation today including: conversation w/ patient, conversation w/ family , physical exam, lab review, review of studies, review of inpatient medication list Saw/examined the patient in room 201 biopsy of lungs performed earlier today chest tube in place tells me he is doing fine, pain controlled; shortness of breath is about the same Problem List Medical Problems: (1) Abnormal chest CT Status: Acute (2) Pneumonitis Status: Acute Review of Systems Constitutional: No fever, No chills Respiratory: + shortness of breath, + dyspnea on exertion, No cough, No sputum Cardiac: No chest pain Abdomen: No pain, No nausea, No vomiting, No diarrhea Medications Current Inpatient Medications Medications (Trade) Dose Ordered Sig/Farhad Route Start Time Stop Time Status Last Admin Dose Admin Ioversol (Optiray 320) 100 ml UD PRN IV 11/04/17 11:45 11/08/17 11:44 Aspirin (Ecotrin Tab) 81 mg DAILY PO 11/05/17 08:00 12/05/17 07:59 11/07/17 08:21 81 MG Atorvastatin Calcium (Lipitor Tab) 20 mg HS PO 11/05/17 22:00 12/05/17 21:59 11/07/17 20:43 20 MG Enalapril Maleate (Vasotec Tab) 10 mg QAM PO 11/05/17 08:00 12/05/17 07:59 11/08/17 11:05 10 MG Methylprednisolone Sodium Succinate 40 mg/Syringe 0.64 ml @ 1.5 mls/min BID IV 11/05/17 20:00 12/05/17 19:59 11/08/17 11:05 1.5 MLS/MIN Acetaminophen 1000 mg/Empty Bag 100 ml @ 400 mls/hr Q8 IV 11/08/17 14:00 12/08/17 13:59 Oxycodone HCl (Roxicodone Immediate Rel Tab) 5 mg Q6H PRN PO 11/08/17 09:15 11/22/17 09:14 Enoxaparin Sodium (Lovenox Inj) 40 mg DAILY SQ 11/09/17 09:00 12/09/17 08:59 Dextrose/Sodium Chloride 1,000 ml @ 100 mls/hr Q10H IV 11/08/17 10:00 12/08/17 09:59 11/08/17 11:10 100 MLS/HR Ondansetron HCl (Zofran Inj) 4 mg Q4H PRN IV 11/08/17 09:15 12/08/17 09:14 Docusate Sodium (coLACE CAP) 100 mg BID PO 11/08/17 21:00 12/08/17 20:59 Ketorolac Tromethamine (Toradol Inj) 15 mg Q8H IV. 11/08/17 14:00 11/10/17 06:01 Metoclopramide HCl (Reglan Inj) 10 mg Q8 IV. 11/08/17 14:00 11/09/17 13:59 Morphine Sulfate (MoRPHine SULFATE INJ) Q1H PRN IV 11/08/17 09:15 11/22/17 09:14 Objective Vital Signs Date Time Temp Pulse Resp B/P (MAP) Pulse Ox O2 Delivery O2 Flow Rate FiO2 11/08/17 10:28 61 16 11/08/17 10:28 61 16 94 11/08/17 10:23 67 24 11/08/17 10:23 67 24 140/87 93 11/08/17 10:22 62 19 93 11/08/17 10:22 62 19 11/08/17 10:17 63 19 139/89 93 11/08/17 10:17 64 19 139/89 11/08/17 10:12 61 16 130/86 93 11/08/17 10:12 64 16 11/08/17 10:07 65 19 144/87 93 11/08/17 10:07 65 19 11/08/17 10:02 58 16 93 11/08/17 10:02 58 16 11/08/17 10:01 141/86 11/08/17 09:58 65 14 93 11/08/17 09:58 64 14 11/08/17 09:57 143/90 11/08/17 09:54 36.5 61 18 145/93 (109) 94 Nasal Cannula 2 11/08/17 09:53 61 19 11/08/17 09:53 62 19 94 11/08/17 09:52 69 18 11/08/17 09:52 69 18 140/80 94 11/08/17 09:47 68 20 95 11/08/17 09:47 69 20 11/08/17 09:46 141/86 11/08/17 09:42 69 14 97 11/08/17 09:42 68 14 11/08/17 09:41 65 17 143/86 98 11/08/17 09:41 66 17 11/08/17 09:36 75 14 11/08/17 09:36 75 14 148/86 97 11/08/17 09:32 138/86 11/08/17 09:31 64 21 97 11/08/17 09:31 64 21 11/08/17 09:28 152/85 11/08/17 09:26 36.2 69 20 152/85 (109) 96 Oxymask 10 11/08/17 06:54 36.6 70 18 138/83 (101) 96 Room Air 11/08/17 04:00 Nasal Cannula 2.0 11/08/17 03:32 36.7 62 16 151/80 (103) 95 11/08/17 00:09 36.7 72 18 111/76 (88) 96 2.0 11/07/17 23:59 Nasal Cannula 2.0 11/07/17 20:00 Nasal Cannula 2.0 11/07/17 19:25 36.7 75 20 124/75 (91) 95 Nasal Cannula 2.0 11/07/17 16:01 36.7 78 20 131/78 (95) 96 Nasal Cannula 2.0 11/07/17 15:30 Nasal Cannula 2.0 11/07/17 12:36 36.4 72 20 148/82 (104) 96 Nasal Cannula 2.0 11/07/17 12:10 Nasal Cannula 2.0 Physical Exam General Appearance: no apparent distress Respiratory/Chest: + decreased breath sounds (on R), + pertinent finding ( chest tube in place) Cardiovascular: regular rate, rhythm, no edema, no murmur Laboratory Results Last 24 Hours Test 11/07/17 13:03 11/08/17 11:05 Arterial Blood pH 7.43 Arterial Blood Partial Pressure CO2 40 mmHg Arterial Blood Partial Pressure O2 74 mm/Hg Arterial Blood HCO3 26 mmol/L Arterial Blood Oxygen Saturation 94.6 % Arterial Blood Base Excess 1.3 mEq/L Arterial Blood Gas Delivery ROOM AIR Bobby Test POS Assessment and Plan This is a 67 year old male with a PMH of CAD s/p stent, HTN, HLD - presents with worsening shortness of breath Diffuse interstitial lung disease Granulomatous disease 11/08 s/p lung biopsy x3 chest tube in place appreciate cardiothoracic surgery input will continue IV steroids and O2 - further management as per pulmonology 11/07 currently on 2L of O2 continue IV steroids currently on tele, sinus rhythm noted possible biopsy? appreciate pulm input 11/06 patient is doing okay, still requiring O2 continue IV steroids will transfer to tele to monitor for PVCs may need biopsy in 1-2 days; possible cardiology input prior to biopsy reference labs for hypersensitivity pneumonitis is pending 11/05 appreciate pulmonary input at this point, hypersensitivity pneumonitis w/up is pending Solu-medrol 40mg q12 added currently on supplemental O2 no antibiotics needed at this point CAD s/p stent continue aspirin, statin not on a b-matt; continue KIKO-I DVT ppx SCDs FULL CODE
--- NOTE | 2017-11-08 13:30 | PULMONARY PROGRESS NOTE ---
DATE: 11/08/2017 TIME: 1300. SUBJECTIVE: The patient is status post right thorascopic surgery with lung biopsy with Dr. Melvin Conteh. Chest tubes in place with no obvious air leak or significant drainage. Biopsies from right upper lobe and lower lobe were taken. Dr. Gomez has seen patient in the past and I will refer you to his consultative note. The patient is having minimal pain but experiencing no respiratory distress. The patient has been on IV methylprednisolone. CTA on 11/05/2007 was reviewed which showed extensive bilateral multilobar distribution of segmental lenticular and ground-glass opacities with a peripheral apical to basilar predominant distribution with no honeycombing noted. This would suggest an NSIP or nonspecific interstitial pneumonitis pattern, but with a long differential. The patient appears to have had prior granulomatous disease. PHYSICAL EXAMINATION: VITAL SIGNS: The patient's vital signs are currently stable and is on 2 liters with O2 saturation of 93%. His temperature 36.5, pulse 82 and regular, respiratory rate 18, blood pressure 153/87, O2 sat 93% on 2 liters. SKIN: Warm and dry. HEENT: Atraumatic, normocephalic, PERRLA, EOMI. Conjunctivae pale. Sclerae nonicteric. Fundi poorly visualized. NECK: Veins not distended at 45 degrees. LUNGS: Velcro rales at the bases. Decreased breath sounds at the right base. CARDIAC: Regular rhythm. I do not appreciate a gallop. ABDOMEN: Soft, scaphoid. EXTREMITIES: No significant pedal edema, clubbing or cyanosis. OVERALL ASSESSMENT: A 67-year-old with a marked abnormality on pulmonary function studies as well as chest CT scan radiographic abnormality consistent with interstitial lung disease with specific diagnosis pending results of the open lung biopsy. Will review the pathology once available and the patient with no doubt will require outpatient followup by the pulmonary service.
[2017-11-08] MEDS: KETOROLAC TROMETHAMINE 15 MG/ML VIAL IV. SCH ×2 (14:17→21:51)
[2017-11-08] MEDS: ACETAMINOPHEN IV 1,000 MG in EMPTY BAG 0 ML IV SCH ×2 (14:17→21:51)
[2017-11-08] MEDS: METOCLOPRAMIDE HCL INJ 5 MG/ML 2 ML VIAL IV. SCH ×2 (14:21→21:51)
--- NOTE | 2017-11-08 14:55 | OPERATIVE REPORT ---
DATE OF OPERATION: 11/08/2017 PREOPERATIVE DIAGNOSIS: Pulmonary infiltrates, unknown etiology. POSTOPERATIVE DIAGNOSIS: Same. PROCEDURE: Right thoracoscopy with wedge biopsy x3. SURGEON: Melvin Conteh MD COGNOS LEAD: JUANCARLOS Jose (Mr. Cuellar was present for the entirety of the case. He was instrumental and managing the camera and closed the skin incisions at conclusion of the case). ANESTHESIA: General anesthesia with a single lumen endotracheal tube. SPECIFICS OF PROCEDURE: This is a 67-year-old male, who has never smoked cigarettes. He was in his usual state of health until about 2 months ago when his signs and symptoms were consistent with an upper respiratory infection. His had been sick before him. He simply did not get better. His cough improved, but he became markedly hypoxic. A CT scan showed infiltrates with some sparing of the right middle lobe. He had no productive cough. He had no fevers and no chills. He did lose some weight. I discussed this case with Dr. Melvin Gmoez and we elected to proceed with a biopsy. On 11/08/2017, the patient underwent uncomplicated intubation with a single lumen tube. We did an uncomplicated biopsy of his right upper lobe and superior segment of the lower lobe as well as the basilar segment of the lower lobe. We had no bleeding and no air leak at the conclusion of the case. He tolerated it well and was extubated in the room. DESCRIPTION OF PROCEDURE: The patient was brought to operating room and laid in supine position. General anesthesia was induced and an endotracheal intubation was performed with a single lumen tube. The patient was placed in left lateral decubitus and right chest was prepped and draped in the usual sterile fashion. After appropriate timeout had been called and prophylactic antibiotics given, a 5-mm incision was made an interspace below and a couple of centimeters behind the tip of the scapula. Carbon dioxide was insufflated. This showed that there were no adhesions and he had good fissures between his lobes. There was an obvious area of the upper lobe, which appeared abnormal. I put another 5-mm port about the fifth interspace anterior to the latissimus dorsi muscle. I then put another 11-mm port about the eighth interspace anteriorly. I then grasped the edge of this with a grasper and using the Endo-OLIVER stapler. We fired across this several times and removed a good size segment of the upper lobe. I sent part of this for culture and smears. Attention was then turned towards the lower lobe. Superior segment had a sizable area stapled off with Endo-OLIVER staplers and I also removed a portion of the basilar segment. I sent the superior segment of lower lobe off for frozen section. This is definitely abnormal. I talked to Dr. Chance Garcia as well as Dr. Lexx Jeff and this is definitely abnormal, although it is an unclear exactly on frozen section. It appeared we had plenty of tissue. I irrigated the chest. There was no significant air leak. 266 mg of Exparel were mixed with 30 mL of 0.5% bupivacaine and 150 mL of normal saline used to perform a block from the 2nd to the 11th rib. This intercostal block was done intrathoracically and was under the direction of the thoracoscopic. I also used some to inject in the chest tube site and the other port sites. Chest tube was placed in the anterior inferior thoracoscopy port and directed towards the apex and sutured in place with heavy silk suture. We then used 4-0 Monocryl in running continuous fashion and closed the skin incisions of all 3 incisions. The patient had no air leak at conclusion of the case, was extubated, and awakened without difficulty. I attest to the content of the Intraoperative Record and any orders documented therein. Any exception s are noted below.
[2017-11-08] MEDS ORDERED: NURSING VERBAL MED ORDER ONE (17:30)
[2017-11-08] MEDS: ATORVASTATIN 20 MG TAB PO SCH (21:50)
[2017-11-08] MEDS: DOCUSATE SODIUM 100 MG CAP PO SCH (21:50)
[2017-11-09] VITALS (7 sets, daily range): BP systolic 127–152; BP diastolic 72–93; PULSE 66–93; TEMP 36.5–36.9; O2SAT 93–97
[2017-11-09] MEDS: ACETAMINOPHEN IV 1,000 MG in EMPTY BAG 0 ML IV SCH ×3 (06:02→19:36)
[2017-11-09] MEDS: METOCLOPRAMIDE HCL INJ 5 MG/ML 2 ML VIAL IV. SCH (06:02)
[2017-11-09] MEDS: KETOROLAC TROMETHAMINE 15 MG/ML VIAL IV. SCH ×3 (06:03→19:37)
[2017-11-09 06:41] LABS: HEMATOCRIT 41.1 % (42-52); HEMOGLOBIN 13.9 g/dL (14.0-18.0); MEAN CELL VOLUME 85.1 fL (80-100); MEAN CORPUSCULAR HEMOGLOBIN 28.8 pg (25-34); MEAN CORPUSCULAR HGB CONC 33.8 g/dl (32-36); MEAN PLATELET VOLUME 8.5 fL (7.4-10.4); PLATELET COUNT 365 K/uL (130-400); RED CELL DISTRIBUTION WIDTH CV 12.9 % (11.5-14.5); RED CELL DISTRIBUTION WIDTH SD 39.6 fL (36.4-46.3); WHITE BLOOD COUNT 12.21 K/uL (4.8-10.8)
[2017-11-09 07:20] LABS: CALCIUM 8.7 mg/dl (8.5-10.1); CREATININE 0.8 mg/dl (0.60-1.40); POTASSIUM 4.5 mmol/L (3.5-5.1)
--- NOTE | 2017-11-09 07:22 | DIAGNOSTIC IMAGING REPORT ---
SINGLE VIEW CHEST CLINICAL HISTORY: Status post right lung biopsy. FINDINGS: An AP, portable, upright chest radiograph is compared to study dated 11/08/2017 and correlated with chest CT dated 11/04/2017. The examination is degraded by portable technique and patient rotation. A chest tube at the right apex is unchanged in position. The heart is top normal for projection. Calcified mediastinal lymph nodes are again noted. There is unchanged appearance of interstitial and alveolar opacities as compared to yesterday. No large pleural effusion or pneumothorax is seen. The skeletal structures are osteopenic. The bony thorax is grossly intact. IMPRESSION: 1. A right-sided chest tube is unchanged in position. No pneumothorax is seen. 2. Alveolar and interstitial airspace opacities are unchanged from previous and likely related to chronic lung disease. Electronically signed by: Haris Upton M.D. 11/09/2017 7:21 AM Dictated Date/Time: 11/09/2017 7:19 AM
--- NOTE | 2017-11-09 07:48 | Anesthesiology Progress Note ---
Anesthesia Post Op Note Date & Time Nov 09, 2017 at 07:48 Vital Signs Pain Intensity: 2.0 Vital Signs Past 12 Hours Date Time Temp Pulse Resp B/P (MAP) Pulse Ox O2 Delivery O2 Flow Rate FiO2 11/09/17 04:03 36.9 74 16 127/79 (95) 95 11/09/17 04:00 Nasal Cannula 2.0 11/09/17 00:05 36.9 79 18 150/93 (112) 96 3.0 11/08/17 23:59 Nasal Cannula 2.0 11/08/17 22:01 63 16 126/70 (88) 97 Nasal Cannula 2.0 11/08/17 20:00 36.8 66 18 127/79 (95) 96 Nasal Cannula 2.0 11/08/17 20:00 Nasal Cannula 2.0 Notes Mental Status: alert / awake / arousable, participated in evaluation Pt Amnestic to Procedure: Yes Nausea / Vomiting: adequately controlled Pain: adequately controlled Airway Patency, RR, SpO2: stable & adequate BP & HR: stable & adequate Hydration State: stable & adequate Anesthetic Complications: no major complications apparent
[2017-11-09] MEDS: ASPIRIN 81 MG ECTAB PO SCH (07:52)
[2017-11-09] MEDS: METHYLPREDNISOLONE IV 40 MG in SYRINGE 0 ML IV SCH ×2 (07:52→19:35)
[2017-11-09] MEDS: ENALAPRIL MALEATE 10 MG TAB PO SCH (07:53)
[2017-11-09] MEDS: ENOXAPARIN 40 MG/0.4 ML SYR SQ SCH (07:54)
[2017-11-09] MEDS: DOCUSATE SODIUM 100 MG CAP PO SCH ×2 (07:54→19:35)
--- NOTE | 2017-11-09 08:50 | Progress Note ---
Progress Note Date of Service Nov 09, 2017. Progress Note The patient was seen this morning 1 day after a thoracoscopic right lung biopsy. He states that he has no pain. He has been ambulating in the hallway. He is tolerating a diet. He has no air leak. His x-ray shows no effusion and no pneumothorax. He is moving air well without wheezing. Remains on 2 L of O2 with 97% saturations. I will pull his chest tube later today. He can be discharged from my perspective. It will probably be at least another day or 2 before we get the final pathology results back. Gram stain showed no organisms. I did discuss the frozen section with the pathologist. It is markedly abnormal. There was some atypia however they feel this is probably inflammatory. 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
--- NOTE | 2017-11-09 09:57 | Progress Note ---
Medicine Progress Note Date & Time of Visit: Nov 09, 2017 at 09:50. Subjective seen sitting up in bed comfortable with 2 L o2 via nasal cannula states he feels better than during admission has less cough ambulates with 2 L O2 without problems no other symptoms Objective Last 8 Hrs Date Time Temp Pulse Resp B/P (MAP) Pulse Ox O2 Delivery O2 Flow Rate FiO2 11/09/17 08:00 Nasal Cannula 1.0 11/09/17 07:00 36.8 66 18 152/83 (106) 97 Nasal Cannula 2.0 11/09/17 04:03 36.9 74 16 127/79 (95) 95 11/09/17 04:00 Nasal Cannula 2.0 Physical Exam: General- oriented x 3, not in distress, speaks in sentences with no effort Head- atraumatic Eyes- PERRL, EOMI, anicteric ENT- oropharynx clear Neck- supple, no JVD, no adenopathy, no thyromegaly; carotids +2/2, no bruits appreciated Lungs- (+) mild rales bilateral bases, no wheezing Heart- regular rhythm; no murmur,normal rate Abdomen- normal bowel sounds, soft, nontender Extremities- no pretibial edema, no calf tenderness; peripheral pulses intact Neuro- alert, oriented x 3; no gross focal deficits Skin- warm & dry Laboratory Results: Last 24 Hours Test 11/08/17 11:05 11/09/17 06:02 Prothrombin Time 10.9 SECONDS Prothromb Time International Ratio 1.0 White Blood Count 12.21 K/uL Red Blood Count 4.83 M/uL Hemoglobin 13.9 g/dL Hematocrit 41.1 % Mean Corpuscular Volume 85.1 fL Mean Corpuscular Hemoglobin 28.8 pg Mean Corpuscular Hemoglobin Concent 33.8 g/dl RDW Standard Deviation 39.6 fL RDW Coefficient of Variation 12.9 % Platelet Count 365 K/uL Mean Platelet Volume 8.5 fL Sodium Level 135 mmol/L Potassium Level 4.5 mmol/L Chloride Level 101 mmol/L Carbon Dioxide Level 31 mmol/L Anion Gap 3.0 mmol/L Blood Urea Nitrogen 22 mg/dl Creatinine 0.80 mg/dl Est Creatinine Clear Calc Drug Dose 102.1 ml/min Estimated GFR () 105.6 Estimated GFR (Non- 91.1 BUN/Creatinine Ratio 27.8 Random Glucose 152 mg/dl Calcium Level 8.7 mg/dl Assessment & Plan This is a 67 year old male with a PMH of CAD s/p stent, HTN, HLD - presents with worsening shortness of breath Diffuse interstitial lung disease possible BOOP 11/08/17: Right thoracoscopy with wedge biopsy x3 Pathology: pending improving on 2 liters NC continue Solumedrol, taper per Pulmonary will need 2 step test prior to discharge appreciate Pulm and Thoracic Surgery SVC recommendations CAD s/p stent continue aspirin, statin continue KIKO-I DVT ppx on Lovenox FULL CODE Disposition anticipate d/c home when cleared by Pulmonary and Thoracic Surgery SVC Two Step Test to be ordered to determined need for Oxygen Supplement on d/c Current Inpatient Medications: Current Inpatient Medications Medications (Trade) Dose Ordered Sig/Farhad Route Start Time Stop Time Status Last Admin Dose Admin Aspirin (Ecotrin Tab) 81 mg DAILY PO 11/05/17 08:00 12/05/17 07:59 11/09/17 07:52 81 MG Atorvastatin Calcium (Lipitor Tab) 20 mg HS PO 11/05/17 22:00 12/05/17 21:59 11/08/17 21:50 20 MG Enalapril Maleate (Vasotec Tab) 10 mg QAM PO 11/05/17 08:00 12/05/17 07:59 11/09/17 07:53 10 MG Methylprednisolone Sodium Succinate 40 mg/Syringe 0.64 ml @ 1.5 mls/min BID IV 11/05/17 20:00 12/05/17 19:59 11/09/17 07:52 1.5 MLS/MIN Acetaminophen 1000 mg/Empty Bag 100 ml @ 400 mls/hr Q8 IV 11/08/17 14:00 12/08/17 13:59 11/09/17 06:02 400 MLS/HR Oxycodone HCl (Roxicodone Immediate Rel Tab) 5 mg Q6H PRN PO 11/08/17 09:15 11/22/17 09:14 Enoxaparin Sodium (Lovenox Inj) 40 mg DAILY SQ 11/09/17 09:00 12/09/17 08:59 11/09/17 07:54 40 MG Ondansetron HCl (Zofran Inj) 4 mg Q4H PRN IV 11/08/17 09:15 12/08/17 09:14 Docusate Sodium (coLACE CAP) 100 mg BID PO 11/08/17 21:00 12/08/17 20:59 11/09/17 07:54 100 MG Ketorolac Tromethamine (Toradol Inj) 15 mg Q8H IV. 11/08/17 14:00 11/10/17 06:01 11/09/17 06:03 15 MG Metoclopramide HCl (Reglan Inj) 10 mg Q8 IV. 11/08/17 14:00 11/09/17 13:59 11/09/17 06:02 10 MG Morphine Sulfate (MoRPHine SULFATE INJ) Q1H PRN IV 11/08/17 09:15 11/22/17 09:14
--- NOTE | 2017-11-09 11:48 | DIAGNOSTIC IMAGING REPORT ---
SINGLE VIEW CHEST CLINICAL HISTORY: Chest tube removal. FINDINGS: An AP, portable, upright chest radiograph is compared to study performed earlier the same day 11/09/2017 and correlated with chest CT dated 11/04/2017. The examination is degraded by portable technique and patient rotation. The right-sided chest tube has been removed. The heart is top normal for projection. Calcified mediastinal lymph nodes are again noted. There is unchanged appearance of interstitial and alveolar opacities as compared to yesterday. No large pleural effusion or pneumothorax is seen. The skeletal structures are osteopenic. The bony thorax is grossly intact. IMPRESSION: 1. The right-sided chest tube has been removed. No pneumothorax is clearly identified. 2. Alveolar and interstitial airspace opacities are unchanged from previous and likely related to chronic lung disease. Electronically signed by: Haris Upton M.D. 11/09/2017 11:47 AM Dictated Date/Time: 11/09/2017 11:46 AM
[2017-11-09] MEDS: ATORVASTATIN 20 MG TAB PO SCH (19:35)
[2017-11-10 03:15] VITALS: BP 135/86; PULSE 72; TEMP 36.7; O2SAT 93
[2017-11-10] MEDS: ACETAMINOPHEN IV 1,000 MG in EMPTY BAG 0 ML IV SCH (05:48)
[2017-11-10] MEDS: KETOROLAC TROMETHAMINE 15 MG/ML VIAL IV. SCH (05:49)
[2017-11-10] MEDS: ASPIRIN 81 MG ECTAB PO SCH (07:32)
[2017-11-10] MEDS: DOCUSATE SODIUM 100 MG CAP PO SCH (07:32)
[2017-11-10] MEDS: ENALAPRIL MALEATE 10 MG TAB PO SCH (07:32)
[2017-11-10] MEDS: METHYLPREDNISOLONE IV 40 MG in SYRINGE 0 ML IV SCH (07:32)
[2017-11-10] MEDS: ENOXAPARIN 40 MG/0.4 ML SYR SQ SCH (07:33)
--- NOTE | 2017-11-10 07:51 | DIAGNOSTIC IMAGING REPORT ---
CHEST ONE VIEW PORTABLE CLINICAL HISTORY: tube removal tube position COMPARISON STUDY: 11/09/2017 FINDINGS: Mild stable cardia megaly. Lungs are grossly clear. No significant pneumothorax. Slight chronic interstitial prominence throughout both hemithoraces. IMPRESSION: No evidence pneumothorax. Stable mild interstitial change throughout both hemithoraces. The above report was generated using voice recognition software. It may contain grammatical, syntax or spelling errors. Electronically signed by: Bryant Arnett M.D. 11/10/2017 7:50 AM Dictated Date/Time: 11/10/2017 7:44 AM
[2017-11-10 07:54] VITALS: BP 151/88; PULSE 65; TEMP 36.6; O2SAT 97
--- NOTE | 2017-11-10 09:02 | PULMONARY PROGRESS NOTE ---
DATE: 11/10/2017 SUBJECTIVE: The patient is doing well. Chest tube has been removed with no sign of pneumothorax on chest x-ray. He has minimal discomfort. I observed him ambulating and he appeared to moderately dyspneic with minimal exertion but stated he "just washed up." He has no sputum production, chills, and no hemoptysis. He is afebrile. PHYSICAL EXAMINATION: VITAL SIGNS: Show temperature of 36.6, pulse 65 and regular, respiratory rate 16, blood pressure 151/88, O2 sat 97% on 2 liters. SKIN: Warm and dry. HEENT: Atraumatic, normocephalic. PERRLA. LUNGS: Decreased breath sounds at the bases with Velcro rales audible. CARDIAC: Regular rate and rhythm. I do not appreciate a gallop. ABDOMEN: Soft, protuberant. EXTREMITIES: No significant pedal edema, clubbing or cyanosis. NEUROLOGIC: Intact. No lateralizing signs. LABORATORY DATA: Chest x-ray today was reviewed, showed no evidence of pneumothorax with stable interstitial changes throughout both hemithoraces. White count yesterday was 12,000, H&H 13 and 41. ASSESSMENT AND PLAN: A 67-year-old with interstitial lung disease status post video-assisted thorascopic biopsy, appears stable. I believe patient can be safely discharged today. I would do a 6-minute walk and have him ambulate without oxygen to see if he requires supplemental oxygen as an outpatient. We will be happy to see him in the clinic in 1-2 weeks to discuss the biopsy results and treatment options. 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
[2017-11-10 11:45] VITALS: BP 137/83; PULSE 81; TEMP 36.7; O2SAT 93
--- NOTE | 2017-11-10 13:06 | Progress Note ---
Medicine Progress Note Date & Time of Visit: Nov 10, 2017 at 12:59. Subjective seen resting in bed, comfortable states he feels fine overall breathing and cough continues to improve ambulated with RT, no supplemental oxygen required denies other symptoms states he is ready and would like to be discharged today Objective Last 8 Hrs Date Time Temp Pulse Resp B/P (MAP) Pulse Ox O2 Delivery O2 Flow Rate FiO2 11/10/17 11:45 36.7 81 20 137/83 (101) 93 Room Air 11/10/17 07:54 36.6 65 16 151/88 (109) 97 Nasal Cannula 2.0 11/10/17 07:30 Nasal Cannula 1.0 Physical Exam: General- oriented x 3, not in distress, speaks in sentences with no effort Eyes- anicteric ENT- oropharynx clear Neck- supple, no JVD Lungs- clear breath sounds bilaterally, no rales/wheezes Incision site, right chest:no signs of infection, bleeding Heart- regular rhythm; no murmur,normal rate Abdomen- normal bowel sounds, soft, nontender Extremities- no pretibial edema, no calf tenderness Neuro- alert, oriented x 3; no gross focal deficits Skin- warm & dry Assessment & Plan This is a 67 year old male with a PMH of CAD s/p stent, HTN, HLD - presents with worsening shortness of breath Diffuse interstitial lung disease 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 Conteh Pathology report: pending evaluated by Pulmonary Dr. Yang given IV methylprednisolone q8h breathing improved weaned off supplemental oxygen discharge with Prednisone taper x 8 days ff up with Thoracic Surgeon Dr. Conteh in 1 week ff up with Pulmonary Dr. Yang in 1-2 week who will follow up Biopsy report CAD s/p stent stable continue aspirin, statin continue KIKO-I DVT ppx on Lovenox FULL CODE Disposition d/c home ff up with PCP in 3-5 days ff up with Thoracic Surgeon Dr. Conteh in 1 week ff up with Pulmonary Dr. Yang in 1-2 week who will follow up Biopsy report Current Inpatient Medications: Current Inpatient Medications Medications (Trade) Dose Ordered Sig/Farhad Route Start Time Stop Time Status Last Admin Dose Admin Aspirin (Ecotrin Tab) 81 mg DAILY PO 11/05/17 08:00 12/05/17 07:59 11/10/17 07:32 81 MG Atorvastatin Calcium (Lipitor Tab) 20 mg HS PO 11/05/17 22:00 12/05/17 21:59 11/09/17 19:35 20 MG Enalapril Maleate (Vasotec Tab) 10 mg QAM PO 11/05/17 08:00 12/05/17 07:59 11/10/17 07:32 10 MG Methylprednisolone Sodium Succinate 40 mg/Syringe 0.64 ml @ 1.5 mls/min BID IV 11/05/17 20:00 12/05/17 19:59 11/10/17 07:32 1.5 MLS/MIN Acetaminophen 1000 mg/Empty Bag 100 ml @ 400 mls/hr Q8 IV 11/08/17 14:00 12/08/17 13:59 11/10/17 05:48 400 MLS/HR Oxycodone HCl (Roxicodone Immediate Rel Tab) 5 mg Q6H PRN PO 11/08/17 09:15 11/22/17 09:14 Enoxaparin Sodium (Lovenox Inj) 40 mg DAILY SQ 11/09/17 09:00 12/09/17 08:59 11/10/17 07:33 40 MG Ondansetron HCl (Zofran Inj) 4 mg Q4H PRN IV 11/08/17 09:15 12/08/17 09:14 Docusate Sodium (coLACE CAP) 100 mg BID PO 11/08/17 21:00 12/08/17 20:59 11/10/17 07:32 100 MG Morphine Sulfate (MoRPHine SULFATE INJ) Q1H PRN IV 11/08/17 09:15 11/22/17 09:14
[2017-11-10] MEDS ORDERED: PRED10TA PO (13:09)
--- NOTE | 2017-11-10 13:22 | Discharge Summary ---
Discharge Summary Date of Service Nov 10, 2017. 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 Procedures: 11/08/17: Thoracoscopic right lung biopsy X [address] Bassett Consultations: Pulmonary Dr. Loja, Thoracic Surgery Dr. Bassett Pending Studies/Follow-Up: Lung Biopsy Pathology Report, Please refer to hospital course below. Medication Reconciliation New Medications: Prednisone Tab (Prednisone) 10 Mg Tab 10 MG PO UD for 8 Days, #20 TAB take 4 tabs po daily x 2 days, then take 3 tabs po daily x 2 days, then take 2 tabs po daily x 2 days, then take 1 tab po daily x 2 days, then STOP Continued Medications: Aspirin (Aspirin 81) 81 Mg Tab 81 MG PO DAILY Atorvastatin (Lipitor) 20 Mg Tab 20 MG PO HS Coenzyme Q10 (Ubidecarenone) (Co-Enzyme Q10) 100 Mg Cap 1 CAP PO DAILY Fish Oil (Osseo-3) 1 Ea Cap 1 CAP PO DAILY Cndcfmodspc-Bzrbvwdqqxc-Vko C- (Glucosamine Chondroitin) 1 Tab Tab 1 TAB PO DAILY Multivitamin (Multivitamin) Tab 1 TAB PO DAILY Ramipril (Altace) 2.5 Mg Cap 2.5 MG PO QAM Admission Information HPI (per Admitting provider): 67-year-old male followed by Dr. Hogan. History of coronary artery disease and a few other problems as noted below. Status post coronary artery stenting several years ago; cardiac status is been stable since then. Physically active and a few months ago was hunting and walking his dog without chest pain or dyspnea. Developed respiratory tract symptoms in September that seemed like a typical cold. Experienced sinus congestion and a congested cough, no significant pharyngitis. No definite fever, but had occasional chills and sweats. Symptoms persisted. He was seen in clinic on 10/11/17 and prescribed a course of azithromycin that did not offer benefit. Re-evaluated in clinic 10/18/17. Chest x-ray demonstrated bilateral infiltrates consistent with pneumonia. Prescribed levofloxacin 500 mg daily for 10 days, prednisone 40 mg daily for 5 days, and albuterol MDI. Noted at best minimal improvement of his symptoms. Finish levofloxacin about 1 week ago. Persistent cough, productive of brownish and sometimes blood-tinged sputum. Increasing dyspnea to the point where he notes significant dyspnea walking from room to room in his home. No fever over the past few days. No chest pain. Retired. Formerly employed at [employer] where he worked in different departments. Exposed to copper, zinc, lead, silver, acidic fumes. No known exposure to asbestos. Has dogs and cats at home; no pet birds. No recent travel history. . Physical Exam (per Admitting): General Appearance: WD/WN, no apparent distress Head: normocephalic, atraumatic Eyes: normal inspection, PERRL, EOMI, sclerae normal, + pertinent finding ( Conjunctivae clear) ENT: normal ENT inspection, hearing grossly normal, + pertinent finding ( Oropharynx clear) Neck: thyroid normal, trachea midline Respiratory/Chest: no respiratory distress, no accessory muscle use, + pertinent finding (Few scattered rhonchi) Cardiovascular: regular rate, rhythm, no edema, no gallop, no JVD, no murmur Abdomen/GI: normal bowel sounds, non tender, soft, no organomegaly, no pulsatile mass Extremities/Musculoskelatal: no calf tenderness, + pertinent finding (No edema; no digital clubbing) Neurologic/Psych: lyric writer II-XII nml as tested (PERRL, EOMI, no facial palsy, no dysarthria), no motor/sensory deficits (motor strength extremities grossly intact), alert, normal mood/affect, oriented x 3 Skin: normal color, warm/dry, no rash, + pertinent finding (Seborrheic keratoses) Lymphatic: no adenopathy Hospital Course This is a 67 year old male with a PMH of CAD s/p stent, HTN, HLD - presents with worsening shortness of breath Diffuse interstitial lung disease 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 Bassett Pathology report: pending evaluated by Pulmonary SVC Dr. Loja given IV methylprednisolone q8h breathing improved weaned off supplemental oxygen discharge with Prednisone taper x 8 days ff up with Thoracic Surgeon Dr. Bassett in 1 week ff up with Pulmonary Dr. Loja in 1-2 week who will follow up Biopsy report CAD s/p stent stable continue aspirin, statin continue KIKO-I Disposition d/c home ff up with PCP in 3-5 days ff up with Thoracic Surgeon Dr. Bassett in 1 week ff up with Pulmonary Dr. Loja in 1-2 week who will follow up Biopsy report Total time spent on discharge = 30 minutes This includes examination of the patient, discharge planning, medication reconciliation, and communication with other providers. Discharge Instructions Discharge Instructions Date of Service Nov 10, 2017. Admission Reason for Admission: Cough, Dyspnea Discharge Discharge Diagnosis / Problem: Interstitial Lung Disease Discharge Goals Goal(s): Diagnostic testing, Therapeutic intervention Activity Recommendations Activity Limitations: as noted below (no heavy exertion until follow up with [facility]) Lifting Limitations: until after follow-up appointment Exercise/Sports Limitations: until after follow-up appointment Shower/Bathe: keep incision dry Driving or Machine Use: No driving until follow up with Primary Care Physician . Instructions / Follow-Up Instructions / Follow-Up PLEASE REVIEW YOUR NEW MEDICATION LIST AND FOLLOW INSTRUCTIONS CAREFULLY. CALL PRIMARY CARE PHYSICIAN OR RETURN TO ER IMMEDIATELY IF WITH RECURRENCE OF SYMPTOMS, INCREASING SHORTNESS OF BREATH, COUGH, FEVER/CHILLS,BLEEDING/DISCHARGE/ SWELLING/REDNESS ON YOUR WOUND. KEEP THE DRESSING ON YOUR WOUND FOR 3 DAYS, THEN YOU MAY REMOVE IT AND MAY TAKE SHOWERS AFTER (NO BATHS). FOLLOW UP WITH DR. HOGAN ON FRIDAY NOVEMBER 17, 2017 AT 11:00AM. FOLLOW UP WITH THORACIC SURGEON DR. BASSETT IN 1 WEEK. PLEASE CALL HIS OFFICE FOR AN APPOINTMENT. FOLLOW UP WITH LEASE PURCHASE DRIVER DR. LOJA IN 1-2 WEEKS. PLEASE CALL HIS OFFICE FOR AN APPOINTMENT. Current Hospital Diet Patient's current hospital diet: AHA Diet (Heart Healthy) Discharge Diet Recommended Diet: AHA Diet (Heart Healthy) Procedures Procedures Performed: Right Video Assisted Thoracoscopy Lung Biopsy Pending Studies Studies pending at discharge: no Medical Emergencies . Who to Call and When: Medical Emergencies: If at any time you feel your situation is an emergency, please call 911 immediately. . Non-Emergent Contact Non-Emergency issues call your: Primary Care Provider, [facility], Surgeon Call Non-Emergent contact if: you have a fever, your pain is not controlled, wound has increased drainage, wound has increased redness, wound has increased pain, you have any medication questions . . "Provider Documentation" section prepared by Ron Rangel. .
[2017-11-10 13:30] VITALS: BP 137/83; PULSE 81; TEMP 36.7; O2SAT 93
[2017-11-10 18:16] LABS: ANA SCREEN TC 249X NEGATIVE (NEGATIVE)
== END 2017-11-10 14:10 | disposition home or self-care (01) | DRG 168 ==
LOC: C.EDB 10:16 → C.MS4W 15:51 → EDBEDREQ 16:12 → ENRESERV 16:15 → C.2E 11-06 16:08
PROVIDERS: ADMIT Hospitalist; ATTEND Internal Medicine
PROC: 0BBC4ZX Excision of Right Upper Lung Lobe, Percutaneous Endoscopic Approach, Diagnostic (ICD-10-PCS; principal; 2017-11-08 07:15)
PROC: 0BBF4ZX Excision of Right Lower Lung Lobe, Percutaneous Endoscopic Approach, Diagnostic (ICD-10-PCS; principal; 2017-11-08 07:15)
DX: J84.89 Other specified interstitial pulmonary diseases (principal); Z83.3 Family history of diabetes mellitus; I25.10 Atherosclerotic heart disease of native coronary artery without angina pectoris; E78.5 Hyperlipidemia, unspecified; R09.02 Hypoxemia; J84.10 Pulmonary fibrosis, unspecified; Z79.82 Long term (current) use of aspirin; Z95.5 Presence of coronary angioplasty implant and graft; Z82.49 Family history of ischemic heart disease and other diseases of the circulatory system

== ENCOUNTER → 2017-11-16 | Outpatient (CLI) | payer OTHER ==
[~2017-11-16] MED LIST changes: +PRED10TA PO
--- NOTE | 2017-11-16 08:32 | DIAGNOSTIC IMAGING REPORT ---
CHEST 2 VIEWS ROUTINE CLINICAL HISTORY: R91.8 Pulmonary [id number] dyspnea COMPARISON STUDY: 11/10/2017 FINDINGS: Baseline interstitial change of both hemithoraces. Somewhat progressive interstitial infiltrative change left mid to lower lung. Diaphragms are smooth. Pulmonary apices are clear. IMPRESSION: Mildly progressive interstitial changes left mid and lower lung suggesting superimposed pneumonitis. The above report was generated using voice recognition software. It may contain grammatical, syntax or spelling errors. Electronically signed by: Bryant Arnett M.D. 11/16/2017 8:31 AM Dictated Date/Time: 11/16/2017 8:28 AM
== END | disposition home or self-care (01) ==
LOC: C.RAD 08:13
PROVIDERS: ATTEND Surgery
DX: R91.8 Other nonspecific abnormal finding of lung field (principal)

== ENCOUNTER → 2017-12-14 | Outpatient (CLI) | payer OTHER ==
[~2017-12-14] MED LIST changes: +PERFLUTREN LIPID MICROSPHERE (DEFINITY) IV ONE; -PRED10TA PO
--- NOTE | 2017-12-14 15:05 | ECHOCARDIOGRAM REPORT ---
*NOTICE TO RECEIVING [employer]Y This information is strictly Confidential and protected under [place] law. [place] law prohibits you from making any further disclosure of this information unless further disclosure is expressly permitted by the written consent of the person to whom it pertains or is authorized by law. A general authorization for the release of medical or other information is not sufficient for this purpose. Hospital accepts no responsibility if the information is made available to any other person, INCLUDING THE PATIENT. Interpretation Summary * Name: ROBERT KEYS Study Date: 12/14/2017 01:38 PM BP: 137/83 mmHg * Patient Location: [facility] HR: 75 * : 1950 (M/d/yyyy) Gender: Male Height: 70 in * Age: 67 yrs Ethnicity: CA Weight: 225 lb * Ordering Physician: CARA LOJA MD * Performed By: Codie Salgado RCS * * Reason For Study: SOB / PULMONARY INFILTRATES * BSA: 2.2 m2 * -- Conclusions -- * There is mild concentric left ventricular hypertrophy. * Left ventricular systolic function is normal. * Grade I diastolic dysfunction, (abnormal relaxation pattern). * Right ventricular systolic pressure is normal. Procedure Details * A complete two-dimensional transthoracic echocardiogram was performed (2D, M-mode, Doppler and color flow Doppler). * The study was technically difficult. * A contrast injection of Definity was performed to improve assessment of LV function. * Contrast was injected into an intravenous site in the right arm. * One vial of Definity ultrasound contrast was diluted in normal saline to a total volume of 10 ml. A total of '3' ml of solution was administered during imaging. * Lot # [id number] of Definity utilized for procedure. * Expiration date DEC 23. * The attending nurse who injected the contrast agent was CHRISTIAN MICHAELS RN. Left Ventricle * The left ventricle is normal in size. * There is mild concentric left ventricular hypertrophy. * Left ventricular systolic function is normal. * Ejection Fraction = 55-60%. * Grade I diastolic dysfunction, (abnormal relaxation pattern). * The left ventricular wall motion is normal. Right Ventricle * The right ventricle is normal in size and function. Atria * The left atrial size is normal. * Right atrium not well visualized. Mitral Valve * The mitral valve anatomy is normal. * There is no mitral regurgitation noted. Tricuspid Valve * The tricuspid valve is not well visualized, but is grossly normal. * There is trace tricuspid regurgitation. * Right ventricular systolic pressure is normal. Aortic Valve * The aortic valve is normal in structure and function. * No hemodynamically significant valvular aortic stenosis. * There is no significant aortic regurgitation. Pulmonic Valve * The pulmonic valve is not well visualized. Great Vessels * The aortic root is normal size. Pericardium/Pleural * There is no pericardial effusion. Great Vessels * Normal inferior vena cava diameter and respiratory variation suggests normal central venous pressure. MMode 2D Measurements and Calculations IVSd 1.5 cm IVSs 1.9 cm LVIDd 4.0 cm LVIDs 2.9 cm LVPWd 1.3 cm LVPWs 1.0 cm IVS/LVPW 1.2 FS 27.2 % EDV(Teich) 70.2 ml ESV(Teich) 32.6 ml EF(Teich) 53.5 % EDV(cubed) 64.2 ml ESV(cubed) 24.8 ml EF(cubed) 61.4 % % IVS thick 27.8 % % LVPW thick -20.90 % LV mass(C)d 212.0 grams LV mass(C)dI 96.6 grams/m\S\2 LV mass(C)s 150.1 grams LV mass(C)sI 68.4 grams/m\S\2 SV(Teich) 37.6 ml SI(Teich) 17.1 ml/m\S\2 SV(cubed) 39.4 ml SI(cubed) 18.0 ml/m\S\2 Ao root diam 3.1 cm Ao root area 7.5 cm\S\2 LA dimension 2.6 cm LA/Ao 0.84 LVAd ap4 36.2 cm\S\2 LVLd ap4 8.6 cm EDV(MOD-sp4) 126.4 ml EDV(sp4-el) 128.5 ml LVAs ap4 21.8 cm\S\2 LVLs ap4 7.0 cm ESV(MOD-sp4) 57.9 ml ESV(sp4-el) 58.1 ml EF(MOD-sp4) 54.2 % EF(sp4-el) 54.8 % LVAd ap2 33.3 cm\S\2 LVLd ap2 7.9 cm EDV(MOD-sp2) 114.8 ml EDV(sp2-el) 119.8 ml LVAs ap2 20.7 cm\S\2 LVLs ap2 6.7 cm ESV(MOD-sp2) 53.3 ml ESV(sp2-el) 54.4 ml EF(MOD-sp2) 53.6 % EF(sp2-el) 54.6 % LVLd %diff -9.84 % EDV(MOD-bp) 118.4 ml LVLs %diff -3.50 % ESV(MOD-bp) 54.7 ml EF(MOD-bp) 53.8 % SV(MOD-sp4) 68.5 ml SI(MOD-sp4) 31.2 ml/m\S\2 SV(MOD-sp2) 61.5 ml SI(MOD-sp2) 28.0 ml/m\S\2 SV(MOD-bp) 63.7 ml SI(MOD-bp) 29.0 ml/m\S\2 SV(sp4-el) 70.5 ml SI(sp4-el) 32.1 ml/m\S\2 SV(sp2-el) 65.5 ml SI(sp2-el) 29.8 ml/m\S\2 Doppler Measurements and Calculations MV E max nelsy 78.3 cm/sec MV A max nelsy 98.7 cm/sec MV E/A 0.79 MV P1/2t max nelsy 76.8 cm/sec MV P1/2t 108.1 msec MVA(P1/2t) 2.0 cm\S\2 MV dec slope 208.1 cm/sec\S\2 MV dec time 0.44 sec Ao V2 max 139.8 cm/sec Ao max PG 7.8 mmHg Ao max PG (full) 5.5 mmHg LV V1 max PG 2.3 mmHg LV V1 max 75.8 cm/sec PA V2 max 101.8 cm/sec PA max PG 4.1 mmHg TR max nelsy 214.0 cm/sec
[2017-12-15 09:22] VITALS: PULSE 75; O2SAT 93
== END | disposition home or self-care (01) ==
LOC: C.CPL 13:28
PROVIDERS: ATTEND Internal Medicine Pulmonary Disease
DX: I50.30 Unspecified diastolic (congestive) heart failure (principal); R06.02 Shortness of breath; R91.8 Other nonspecific abnormal finding of lung field

== ENCOUNTER 2022-10-28 14:05 | Observation (INO) ==
[2022-10-28] MEDS ORDERED: PANTOprazole 40 MG in SYRINGE 0 ML IV ONE (14:23)
[2022-10-28] MEDS ORDERED: SODIUM CHLORIDE 0.9% 500 ML IV STA (14:23)
--- NOTE | 2022-10-28 14:29 | Emergency Department Note ---
Impression & Plan Chest pain, Abnormal EKG, Abdominal pain, acute, epigastric ED Provider Note NAME: ROBERT KEYS AGE: 72 SEX: M : 1950 ARRIVES VIA: Ambulance INFORMANT: Patient, ED PROVIDER(S): Stephen Sharma DO CHIEF COMPLAINT: Chest pain HPI: The patient is a 72-year-old male who presented to the emergency department for an evaluation of chest pain. The patient went to see his [place] clinic physician first and was sent to the emergency room by ambulance. The patient describes episodes of chest discomfort that he has been noticing over the course of the last few days. The patient states that he does have a history of coronary artery disease. He states the pain was similar. The pain is a pressure across his anterior chest. He notices it more when he exerts himself especially walking upstairs. He states the pain is relieved with rest. He has also noticed that he has been burping a lot. He thought this could be from reflux. He did take Maalox with some relief of his symptoms. He denies having any changes to his medications. He states has been compliant with outpatient medications. He denies having any lower extremity swelling or pain. ROS: See above HPI for pertinent positives & negatives. A total of 10 systems reviewed and were otherwise negative. PAST MEDICAL HISTORY: See Below PAST SURGICAL HISTORY: See Below FAMILY HISTORY: See Below SOCIAL HISTORY: See Below HOME MEDICATIONS: See Below ALLERGIES: See Below VITALS: See Below PHYSICAL EXAMINATION: GENERAL: Patient is awake alert in no acute distress patient is resting comfortably and showing no signs of anxiety EYES: The conjunctivae are clear. The pupils are round and reactive. EARS, NOSE, MOUTH AND THROAT: The nose is without any evidence of any deformity. Mucous membranes are moist. Tongue is midline. NECK: The neck is nontender and supple. RESPIRATORY: Normal respiratory effort is noted there is no evidence of wheezing rhonchi or rales CARDIOVASCULAR: Regular rate and rhythm noted there no murmurs rubs or gallops normal S1 normal S2. GASTROINTESTINAL: The abdomen is distended. There is diffuse tenderness to p alpation. There is no specific guarding rigidity. Pain appears to be mostly in the upper abdomen. MUSCULOSKELETAL/EXTREMITIES: There is no evidence of gross deformity full range of motion is noted in the hips and shoulders. SKIN: There is no obvious evidence of any rash. There are no petechiae, pallor or cyanosis noted. NEUROLOGIC: Patient is awake alert and oriented x3. MEDICAL DECISION MAKING: The patient is a 72-year-old male who presented to the emergency department for an evaluation of epigastric abdominal pain and chest pain. The patient was seen by his primary care physician. Given his history of coronary artery disease in the past he was referred to the emergency department for further evaluation. I did review the patient's prehospital EKG as well as his EKG from the [place] clinic. I discussed the limitations of the emergency department work-up for chest pain with him. Ultimately the patient was found to have normal troponin x2. He started having a recurrence of his chest pain. His second EKG appears to have some ST segment depressions which could be related to ischemia. The patient's pain was very short-lived. He was treated with aspirin in the emergency department. I discussed the patient's laboratory and radiographic studies with him. I also discussed the limitations of the emergency department work-up for chest pain with him. Ultimately given his findings I did discuss his case with the on-call [facility] hospitalist. They have agreed to evaluate the patient in the emergency department for further management and disposition. Triage Nursing notes reviewed. Prior medical records reviewed Vital Signs: reviewed and remarkable for elevated blood pressure. Differential diagnosis: Cardiac ischemia, aortic dissection, pulmonary embolism, pneumothorax, pneumonia, pericarditis, myocarditis, esophageal rupture, GERD, cholecystitis, pancreatitis, musculoskeletal, as well as other pathologies. ER treatment provided: See below Diagnostics interpreted by me: ECG: EKG was obtained in the emergency department. My interpretation is sinus rhythm at 81 bpm. Ectopic atrial beats were noted. There is no acute ST segment abnormalities noted. There were no PVCs. This was compared to a tracing from October 04, 2018. The ectopic atrial beats are new otherwise no specific changes were noted. An EKG that was sent from the [place] clinic was reviewed. My interpretation is sinus rhythm at 82 bpm. A first-degree AV block was noted. PVC was noted. There is no acute ST segment abnormalities noted. An EKG that was done by the prehospital personnel was reviewed. My interpretation is normal sinus rhythm at 81 bpm. First-degree AV block is noted. There is no acute ST segment abnormalities noted. A second EKG was obtained in the emergency department after the patient developed chest pain. My interpretation is sinus rhythm at 88 bpm. First- degree AV block was noted. Nonspecific inferior and low lateral ST depressions were noted. The ST abnormalities are new compared to the earlier tracing. Cardiac Monitoring: An order was placed for continuous cardiac monitoring. The monitor shows a rate of 63 bpm with sinus rhythm. Laboratory studies: As stated above and show below. Imaging studies: See below. Radiographic imaging was reviewed by myself Consultation(s): I discussed this case with Vianney who is on for the [facility] hospitalist group. Past Med/Surg History Medical History (Updated 10/28/22 @ 20:27 by Stephen Sharma DO) Chronic interstitial lung disease Coronary artery disease Cough Dyslipidemia History of renal calculi Surgical History H/O heart artery stent Status post coronary artery stent placement Status post vasectomy Family History Mother Myocardial infarction Father Myocardial infarction Sister Myocardial infarction Brother Coronary heart disease Social History Smoking Status: Never smoker Second Hand Exposure: Yes; Do You Dip or Chew Tobacco: No; Tobacco Cessation Education Requested by Patient: No Hx Alcohol Use: Yes Alcohol type: beer Alcohol Intake Frequency: Monthly or Less Hx Substance Use: No Preferred Language: [place] Communication Ability: Effective Service Delivery Analyst Required: No Beliefs That Will Affect Care: None Current Living Situation: Spouse Other Information That Helps Us Care for You: No Feels Safe at Home: Yes Safety Concerns: Feels Safe At This Time Assistive Devices: Glasses Allergies Allergies Allergy/AdvReac Type Severity Reaction Status Date / Time No Known Allergies Allergy Unverified 10/28/22 16:49 Home Meds Home Medications Medication Instructions Recorded Confirmed aspirin 81 mg tablet,delayed 81 mg PO DAILY 10/28/22 10/28/22 release coenzyme Q10 100 mg capsule 100 mg PO DAILY 10/28/22 10/28/22 (CoQ-10) multivitamin (Multiple Vitamins 1 tab PO DAILY 10/28/22 10/28/22 tablet) ramipril 2.5 mg capsule 2.5 mg PO QAM 10/28/22 10/28/22 rosuvastatin 20 mg tablet 20 mg PO PM 10/28/22 10/28/22 Results & Data (ED) Vital Signs Vital Signs - 24 hr 10/28/22 14:09 10/28/22 14:09 10/28/22 14:09 Temperature 36.6 C Temperature Source Oral Pulse Rate 77 Pulse Rate [Apical] 75 Pulse Rate from SpO2 Sensor Pulse Rhythm Regular Pulse Rhythm [Apical] Regular Pulse Strength Normal Pulse Strength [Apical] Normal Respiratory Rate 22 20 Respiratory Effort / Characteristics Non-Labored Non-Labored Respiratory Depth Normal Normal Respiratory Pattern Regular Regular Blood Pressure 180/93 H Blood Pressure Mean 122 Pulse Oximetry 99 98 Oxygen Delivery Method Room Air Room Air Room Air Sepsis Recent Fever Within 48 Hours No Sepsis New/Unexplained Change in Mental Status N/A Sepsis Action Taken by Nursing No Action Required 10/28/22 14:35 10/28/22 14:33 10/28/22 14:34 Temperature Temperature Source Pulse Rate 71 68 73 Pulse Rate [Apical] Pulse Rate from SpO2 Sensor Pulse Rhythm Pulse Rhythm [Apical] Pulse Strength Pulse Strength [Apical] Respiratory Rate 14 23 Respiratory Effort / Characteristics Respiratory Depth Respiratory Pattern Blood Pressure Blood Pressure Mean Pulse Oximetry Oxygen Delivery Method Sepsis Recent Fever Within 48 Hours Sepsis New/Unexplained Change in Mental Status Sepsis Action Taken by Nursing 10/28/22 14:34 10/28/22 14:24 10/28/22 15:00 Temperature Temperature Source Pulse Rate 70 Pulse Rate [Apical] Pulse Rate from SpO2 Sensor Pulse Rhythm Regular Pulse Rhythm [Apical] Pulse Strength Pulse Strength [Apical] Respiratory Rate 18 Respiratory Effort / Characteristics Respiratory Depth Respiratory Pattern Blood Pressure 145/88 H 153/81 H Blood Pressure Mean 107 105 Pulse Oximetry 97 Oxygen Delivery Method Room Air Sepsis Recent Fever Within 48 Hours Sepsis New/Unexplained Change in Mental Status Sepsis Action Taken by Nursing 10/28/22 15:00 10/28/22 15:30 10/28/22 15:30 Temperature Temperature Source Pulse Rate 75 71 Pulse Rate [Apical] Pulse Rate from SpO2 Sensor Pulse Rhythm Pulse Rhythm [Apical] Pulse Strength Pulse Strength [Apical] Respiratory Rate 24 15 Respiratory Effort / Characteristics Respiratory Depth Respiratory Pattern Blood Pressure 158/88 H Blood Pressure Mean 111 Pulse Oximetry Oxygen Delivery Method Sepsis Recent Fever Within 48 Hours Sepsis New/Unexplained Change in Mental Status Sepsis Action Taken by Nursing 10/28/22 16:08 10/28/22 16:11 10/28/22 16:11 Temperature Temperature Source Pulse Rate 77 Pulse Rate [Apical] Pulse Rate from SpO2 Sensor 77 79 Pulse Rhythm Pulse Rhythm [Apical] Pulse Strength Pulse Strength [Apical] Respiratory Rate 18 Respiratory Effort / Characteristics Respiratory Depth Respiratory Pattern Blood Pressure 161/88 H Blood Pressure Mean 112 Pulse Oximetry 97 96 Oxygen Delivery Method Sepsis Recent Fever Within 48 Hours Sepsis New/Unexplained Change in Mental Status Sepsis Action Taken by Nursing 10/28/22 16:12 10/28/22 16:12 10/28/22 16:30 Temperature Temperature Source Pulse Rate 78 Pulse Rate [Apical] Pulse Rate from SpO2 Sensor 77 Pulse Rhythm Pulse Rhythm [Apical] Pulse Strength Pulse Strength [Apical] Respiratory Rate 22 Respiratory Effort / Characteristics Respiratory Depth Respiratory Pattern Blood Pressure 152/78 H 157/86 H Blood Pressure Mean 102 109 Pulse Oximetry 96 Oxygen Delivery Method Sepsis Recent Fever Within 48 Hours Sepsis New/Unexplained Change in Mental Status Sepsis Action Taken by Nursing 10/28/22 16:30 Temperature Temperature Source Pulse Rate 83 Pulse Rate [Apical] Pulse Rate from SpO2 Sensor 81 Pulse Rhythm Pulse Rhythm [Apical] Pulse Strength Pulse Strength [Apical] Respiratory Rate 21 Respiratory Effort / Characteristics Respiratory Depth Respiratory Pattern Blood Pressure Blood Pressure Mean Pulse Oximetry 98 Oxygen Delivery Method Sepsis Recent Fever Within 48 Hours Sepsis New/Unexplained Change in Mental Status Sepsis Action Taken by Group Home Medications Current Medication List: was personally reviewed by me Laboratory Data Attestation: I reviewed the patient's lab results. 10/28/22 14:21 10/28/22 14:21 Lab Results 10/28/22 10/28/22 10/28/22 Range/Units 14:21 14:21 14:21 WBC 7.24 (4.8-10.8) K/ul RBC 5.27 (4.70-6.10) M/uL Hgb 15.3 (14.0-18.0) g/dl POC Hgb (14.0-18.0) g/dl Hct 45.6 (42.0-52.0) % POC Hct (42-52) % MCV 86.5 (80.0-100.0) fL MCH 29.0 (25.0-34.0) pg MCHC 33.6 (32.0-36.0) g/dL RDW Std Deviation 39.3 (36.4-46.3) fL RDW Coeff of Marily 12.6 (11.5-14.5) % Plt Count 230 (130-400) K/uL MPV 8.7 L (9.4-12.4) fL Immature Gran % (Auto) 0.0 % Neut % (Auto) 59.0 % Lymph % (Auto) 28.6 % Bibb % (Auto) 9.9 % Eos % (Auto) 1.9 % Baso % (Auto) 0.6 % Neut # (Auto) 4.27 (1.40-6.50) K/uL Lymph # (Auto) 2.07 (1.2-3.4) K/uL Bibb # (Auto) 0.72 H (0.11-0.59) K/uL Eos # (Auto) 0.14 (0-0.50) K/uL Baso # (Auto) 0.04 (0-0.2) K/uL Immature Gran # (Auto) 0.00 L (0.01-0.20) K/uL PT 11.3 (9.0-12.0) Seconds INR 1.1 (0.9-1.1) APTT 26.9 (21.0-31.0) Seconds PTT Ratio 1.0 POC Sodium (135-144) mmol/L Sodium 139 (136-145) mmol/L POC Potassium (3.3-5.0) mmol/L Potassium 4.2 (3.5-5.1) mmol/L POC Chloride (101-112) mmol/L Chloride 105 (98-107) mmol/L Carbon Dioxide 27 (21-32) mmol/L POC Total CO2 (24-31) mmol/L Anion Gap 7 (3-11) POC Anion Gap (16-25) mmol/L POC BUN (7-18) mg/dl BUN 11 (6-23) mg/dl Creatinine 0.73 (0.6-1.4) mg/dl POC Creatinine (0.6-1.3) mg/dl Est Cr Clr Drug Dosing 109.3 ml/min Est GFR ( Amer) 105.9 ml/min Est GFR (Non-Af Amer) 91.4 ml/min BUN/Creatinine Ratio 15.1 (10-20) Glucose 114 H (70-99(Fasting)) mg/dl POC Glucose (other) (70-99) mg/dl Calcium 9.7 (8.5-10.1) mg/dl POC Ioniz Calcium Lana (1.12-1.32) mmol/l Total Bilirubin 0.5 (0.2-1.0) mg/dl AST 23 (13-39) U/L ALT 21 (7-52) U/L Alkaline Phosphatase 82 (34-104) U/L Troponin I High Sens 7.1 (0-20) pg/ml Total Protein 7.9 (6.0-8.3) gm/dl Albumin 4.6 (3.4-5.0) gm/dl Globulin 3.3 (2.5-4.0) gm/dl Albumin/Globulin Ratio 1.4 (0.9-2) Lipase 16 (11-82) U/L SARS-CoV-2, RNA, NAAT (NEGATIVE) 10/28/22 10/28/22 10/28/22 Range/Units 14:39 16:17 16:36 WBC (4.8-10.8) K/ul RBC (4.70-6.10) M/uL Hgb (14.0-18.0) g/dl POC Hgb 13.9 L (14.0-18.0) g/dl Hct (42.0-52.0) % POC Hct 41 L (42-52) % MCV (80.0-100.0) fL MCH (25.0-34.0) pg MCHC (32.0-36.0) g/dL RDW Std Deviation (36.4-46.3) fL RDW Coeff of Marily (11.5-14.5) % Plt Count (130-400) K/uL MPV (9.4-12.4) fL Immature Gran % (Auto) % Neut % (Auto) % Lymph % (Auto) % Bibb % (Auto) % Eos % (Auto) % Baso % (Auto) % Neut # (Auto) (1.40-6.50) K/uL Lymph # (Auto) (1.2-3.4) K/uL Bibb # (Auto) (0.11-0.59) K/uL Eos # (Auto) (0-0.50) K/uL Baso # (Auto) (0-0.2) K/uL Immature Gran # (Auto) (0.01-0.20) K/uL PT (9.0-12.0) Seconds INR (0.9-1.1) APTT (21.0-31.0) Seconds PTT Ratio POC Sodium 139 (135-144) mmol/L Sodium (136-145) mmol/L POC Potassium 4.1 (3.3-5.0) mmol/L Potassium (3.5-5.1) mmol/L POC Chloride 104 (101-112) mmol/L Chloride (98-107) mmol/L Carbon Dioxide (21-32) mmol/L POC Total CO2 24 (24-31) mmol/L Anion Gap (3-11) POC Anion Gap 17.0 (16-25) mmol/L POC BUN 10 (7-18) mg/dl BUN (6-23) mg/dl Creatinine (0.6-1.4) mg/dl POC Creatinine 0.7 (0.6-1.3) mg/dl Est Cr Clr Drug Dosing ml/min Est GFR ( Amer) ml/min Est GFR (Non-Af Amer) ml/min BUN/Creatinine Ratio (10-20) Glucose (70-99(Fasting)) mg/dl POC Glucose (other) 114 H (70-99) mg/dl Calcium (8.5-10.1) mg/dl POC Ioniz Calcium Lana 1.22 (1.12-1.32) mmol/l Total Bilirubin (0.2-1.0) mg/dl AST (13-39) U/L ALT (7-52) U/L Alkaline Phosphatase (34-104) U/L Troponin I High Sens 7.6 (0-20) pg/ml Total Protein (6.0-8.3) gm/dl Albumin (3.4-5.0) gm/dl Globulin (2.5-4.0) gm/dl Albumin/Globulin Ratio (0.9-2) Lipase (11-82) U/L SARS-CoV-2, RNA, NAAT NEGATIVE (NEGATIVE) Administered Medications Heparin Sodium (Porcine) (Heparin Sod 5,000 Unit/0.5 Ml Vial) 5,000 units SQ Q12 EVA Stop: 11/27/22 20:59 Last Admin: 10/28/22 20:27 Dose: 5,000 units Documented By: RADHA Pantoprazole Sodium 40 mg/ (Syringe) 10 mls @ 5 mls/min IV BID EVA Stop: 11/27/22 20:59 Last Admin: 10/28/22 20:27 Dose: 5 mls/min Documented By: RADHA Rosuvastatin Calcium (Rosuvastatin Calcium 20 Mg Tab) 20 mg PO PM EVA Stop: 11/27/22 20:59 Last Admin: 10/28/22 20:26 Dose: 20 mg Documented By: RADHA Discontinued Medications Aspirin (Aspirin Chew 324 Mg) 324 mg PO NOW STA Stop: 10/28/22 16:08 Last Admin: 10/28/22 16:38 Dose: 324 mg Documented By: CONSTANZA Sodium Chloride (Nss) 500 mls @ 999 mls/hr IV .Q31M STA Stop: 10/28/22 14:53 Last Infusion: 10/28/22 16:39 Dose: 0 mls/hr Documented By: Admin: 10/28/22 15:12 Dose: 999 mls/hr Documented By: DILLAN Pantoprazole Sodium 40 mg/ (Syringe) 10 mls @ 5 mls/min IV NOW ONE Stop: 10/28/22 14:24 Last Admin: 10/28/22 15:27 Dose: 5 mls/min Documented By: DILLAN Ioversol (Optiray 350 100ml) 85 ml IV ONCE ONE Stop: 10/28/22 15:45 Last Admin: 10/28/22 15:45 Dose: 85 ml Documented By: PRAFUL Imaging Data Radiologist's Impression: Abdomen/Pelvis CT 10/28/22 14:23 CT SCAN OF THE ABDOMEN AND PELVIS WITH IV CONTRAST CLINICAL HISTORY: Upper abdominal pain. COMPARISON STUDY: Abdominal radiographs dated 10/29/2016 TECHNIQUE: Following the IV administration of 85 cc of Optiray 350, CT scan of the abdomen and pelvis is performed from the lung bases to the proximal femora. Images are reviewed in the axial, sagittal, and coronal planes. IV contrast was administered without complication. A dose lowering technique was utilized ad wali to the principles of ALARA. CT DOSE: 692.31 mGy.cm FINDINGS: Lung bases: The heart is top normal in size and without pericardial effusion. The coronary arteries are densely calcified. Calcified mediastinal lymph nodes are partially visualized. Advanced emphysema is noted. There is patchy airspace consolidation in the lingula. Scattered calcified granulomas are observed. Scarring/atelectasis is noted at both lung bases. No pleural effusion is identified. Postoperative change is suggested at the right lung base. There is a tiny hiatal hernia. Liver: The contrast-enhanced liver is normal in size, contour, and attenuation. There is no intrahepatic biliary ductal dilatation. The hepatic veins and portal veins are patent. Gallbladder: Unremarkable. Spleen: Normal in size and attenuation. Pancreas: Unremarkable. Adrenal glands: Unremarkable. Kidneys: The contrast enhanced kidneys are normal in size and without hydronephrosis. There is a punctate nonobstructing right renal calculus. No left renal calculi are identified and there is no ureteral stone. Renal sinus cysts are seen on the left. The kidneys enhance symmetrically. A circumaortic left renal vein is incidentally noted. Abdominal vasculature: The abdominal aorta is normal in course and caliber noting moderate to advanced atherosclerotic calcification. Bowel: There is moderate colonic diverticulosis without CT evidence of acute diverticulitis. No bowel obstruction is seen. Mild fecal retention is seen throughout the colon. The appendix is well-visualized and normal. Peritoneum: There is no intraperitoneal free air or abdominal ascites. There is a small fat-containing umbilical hernia. Lymphadenopathy: None. Pelvic viscera: The prostate gland is mildly enlarged and heterogeneous. The bladder wall appears thickened/trabeculated indicating chronic outlet obstruction. Skeletal structures: The skeletal structures are osteopenic. Moderate lumbosacral spondylosis is observed. Degenerative change is noted in the sacroiliac joints. No lytic or blastic lesions are seen. 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 IMPRESSION: 1. No acute infectious or inflammatory findings are identified in the abdomen or pelvis. 2. There is patchy airspace consolidation in the lingula, likely representing a mild pneumonia. Clinical correlation will be required and radiographic follow-up to resolution is recommended. 3. Advanced emphysema. 4. Colonic diverticulosis without CT evidence of acute diverticulitis. 5. Punctate nonobstructing right renal calculus. 6. Advanced coronary artery atherosclerosis. 7. 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 8. Additional findings as above. ACT 112: Negative or not required by law. Electronically signed by: Haris Upton M.D. 10/28/2022 3:57 PM Chest X-Ray 10/28/22 14:24 SINGLE VIEW CHEST CLINICAL HISTORY: Atypical chest pain. FINDINGS: An AP, portable, upright chest radiograph is compared to study dated 10/03/2018. The heart is enlarged. There is mild pulmonary vascular congestion. Interstitial thickening in the mid to lower lungs suggests mild interstitial edema. There is moderate chronic elevation of the right hemidiaphragm with bibasilar atelectasis. No large pleural effusion or pneumothorax is seen. The skeletal structures are osteopenic. The bony thorax is grossly intact. IMPRESSION: Cardiomegaly with evidence of mild congestive failure. Clinical correlation will be required and radiographic follow-up to resolution is recommended. ACT 112: Negative or not required by law. Electronically signed by: Haris Upton M.D. 10/28/2022 2:51 PM Discharge Plan Visit Data Chief Complaint: Chest Pain Stated Complaint: CHEST PAIN ED Provider: Stephen Sharma Discharge Problem: Chest pain, Abnormal EKG, Abdominal pain, acute, epigastric Patient Disposition: Admitted As Inpatient Discharge Instructions Interventions: ED Discharge Assessment Last Done: 10/28/22 18:49 Chest pain Qualifiers: Chest pain type: unspecified Qualified Code(s): R07.9 - Chest pain, unspecified
[2022-10-28 14:52] LABS: iSTAT Creatinine 0.7 mg/dl (0.6-1.3); iSTAT Hemoglobin 13.9 g/dl (14.0-18.0); iSTAT Ionized Calcium 1.22 mmol/l (1.12-1.32); iSTAT Potassium 4.1 mmol/L (3.3-5.0)
--- NOTE | 2022-10-28 14:52 | XRay Report ---
SINGLE VIEW CHEST CLINICAL HISTORY: Atypical chest pain. FINDINGS: An AP, portable, upright chest radiograph is compared to study dated 10/03/2018. The heart i s enlarged. There is mild pulmonary vascular congestion. Interstitial thickening in the mid to lower lungs suggests mild interstitial edema. There is moderate chronic elevation of the right hemidiaphrag m with bibasilar atelectasis. No large pleural effusion or pneumothorax is seen. The skeletal structu res are osteopenic. The bony thorax is grossly intact. IMPRESSION: Cardiomegaly with evidence of mild congestive failure. Clinical correlation will be requi red and radiographic follow-up to resolution is recommended. ACT 112: Negative or not required by law. Electronically signed by: Haris Upton M.D. 10/28/2022 2:51 PM
[2022-10-28 15:01] LABS: Basophils # (auto) 0.04 K/uL (0-0.2); Basophils % (auto) 0.6 %; Eosinophils # (auto) 0.14 K/uL (0-0.50); Eosinophils % (auto) 1.9 %; Hematocrit (blood only) 45.6 % (42.0-52.0); Hemoglobin 15.3 g/dl (14.0-18.0); Lymphocytes # (auto) 2.07 K/uL (1.2-3.4); Lymphocytes % (auto) 28.6 %; Mean Corpuscular Hgb Conc 33.6 g/dL (32.0-36.0); Mean Corpuscular Volume 86.5 fL (80.0-100.0); Mean Platelet Volume 8.7 fL (9.4-12.4); Monocytes # (auto) 0.72 K/uL (0.11-0.59); Monocytes % (auto) 9.9 %; Neutrophils # (auto) 4.27 K/uL (1.40-6.50); Platelet Count 230 K/uL (130-400); RDW Coefficient of Variation 12.6 % (11.5-14.5); RDW Standard Deviation 39.3 fL (36.4-46.3); Red Blood Count 5.27 M/uL (4.70-6.10); White Blood Count 7.24 K/ul (4.8-10.8)
[2022-10-28 15:11] LABS: Albumin Globulin Ratio 1.4 (0.9-2); Albumin Level 4.6 gm/dl (3.4-5.0); BUN Creatinine Ratio 15.1 (10-20); Bilirubin,Total 0.5 mg/dl (0.2-1.0); Calcium 9.7 mg/dl (8.5-10.1); Creatinine Clr Calc Pharmacy 109.3 ml/min; Est GFR (African American) 105.9 ml/min; Est GFR (Non-African American) 91.4 ml/min; Globulin 3.3 gm/dl (2.5-4.0); Potassium 4.2 mmol/L (3.5-5.1); Total Protein 7.9 gm/dl (6.0-8.3)
[2022-10-28 15:15] LABS: Troponin I High Sensitivity 7.1 pg/ml (0-20)
[2022-10-28 15:32] LABS: INR 1.1 (0.9-1.1); Partial Thromboplastin Time 26.9 Seconds (21.0-31.0); Prothrombin Time 11.3 Seconds (9.0-12.0)
[2022-10-28] MEDS ORDERED: OPTIRAY 350 100ml IV ONE (15:44)
--- NOTE | 2022-10-28 15:58 | CT Scan Report ---
CT SCAN OF THE ABDOMEN AND PELVIS WITH IV CONTRAST CLINICAL HISTORY: Upper abdominal pain. COMPARISON STUDY: Abdominal radiographs dated 10/29/2016 TECHNIQUE: Following the IV administration of 85 cc of Optiray 350, CT scan of the abdomen and pelvi s is performed from the lung bases to the proximal femora. Images are reviewed in the axial, sagittal , and coronal planes. IV contrast was administered without complication. A dose lowering technique wa s utilized adhering to the principles of ALARA. CT DOSE: 692.31 mGy.cm FINDINGS: Lung bases: The heart is top normal in size and without pericardial effusion. The coronary arteries a re densely calcified. Calcified mediastinal lymph nodes are partially visualized. Advanced emphysema is noted. There is patchy airspace consolidation in the lingula. Scattered calcified granulomas are o bserved. Scarring/atelectasis is noted at both lung bases. No pleural effusion is identified. Postope rative change is suggested at the right lung base. There is a tiny hiatal hernia. Liver: The contrast-enhanced liver is normal in size, contour, and attenuation. There is no intrahepa tic biliary ductal dilatation. The hepatic veins and portal veins are patent. Gallbladder: Unremarkable. Spleen: Normal in size and attenuation. Pancreas: Unremarkable. Adrenal glands: Unremarkable. Kidneys: The contrast enhanced kidneys are normal in size and without hydronephrosis. There is a punc knight nonobstructing right renal calculus. No left renal calculi are identified and there is no ureter al stone. Renal sinus cysts are seen on the left. The kidneys enhance symmetrically. A circumaortic l eft renal vein is incidentally noted. Abdominal vasculature: The abdominal aorta is normal in course and caliber noting moderate to advance d atherosclerotic calcification. Bowel: There is moderate colonic diverticulosis without CT evidence of acute diverticulitis. No bowel obstruction is seen. Mild fecal retention is seen throughout the colon. The appendix is well-visual ized and normal. Peritoneum: There is no intraperitoneal free air or abdominal ascites. There is a small fat-containin g umbilical hernia. Lymphadenopathy: None. Pelvic viscera: The prostate gland is mildly enlarged and heterogeneous. The bladder wall appears thi ckened/trabeculated indicating chronic outlet obstruction. Skeletal structures: The skeletal structures are osteopenic. Moderate lumbosacral spondylosis is obse rved. Degenerative change is noted in the sacroiliac joints. No lytic or blastic lesions are seen. Th ere is avascular necrosis of the femoral heads. IMPRESSION: 1. No acute infectious or inflammatory findings are identified in the abdomen or pelvis. 2. There is patchy airspace consolidation in the lingula, likely representing a mild pneumonia. Clini suzi correlation will be required and radiographic follow-up to resolution is recommended. 3. Advanced emphysema. 4. Colonic diverticulosis without CT evidence of acute diverticulitis. 5. Punctate nonobstructing right renal calculus. 6. Advanced coronary artery atherosclerosis. 7. 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 8. Additional findings as above. ACT 112: Negative or not required by law. Electronically signed by: Haris Upton M.D. 10/28/2022 3:57 PM
[2022-10-28] MEDS ORDERED: ASPIRIN CHEW 324 MG PO STA (16:07)
--- NOTE | 2022-10-28 16:41 | History & Physical Report ---
Date of Service October 28, 2022 Assessment & Plan (1) Chest pain: (2) Coronary artery disease: Plan: Patient is 72-year-old male with PMH CAD s/p stent, HTN, HLD, interstitial lung disease presented to ER with intermittent c/o chest pressure,belching x couple of days. In ER vitals stable. In ER had episode of chest pressure that self resolved in a few minutes. Repeat EKG reviewed and interpreted by myself with HR, 88, sinus rhythm first-degree AV block, ST depression anterior lateral leads which are new compared to initial EKG obtained at 2 PM today. Initial high sensitivity troponin: 7.1. Repeat 2 hours later 7.6 R/O ACS. Risk factors: CAD, HLD, FH CAD. DDX: GERD In ER given 324mg aspirin, Protonix IV No current chest pain Repeat EKG in am Will trend troponin Echo Lipid panel in am, continue rosuvastatin Continue aspirin Nitro prn CP and repeat EKG for CP Cardiology consult Will start Protonix BID for now (3) Dyslipidemia: Plan: Continue rosuvastatin (4) Chronic interstitial lung disease: Plan: Chronic cough. Denies increased SOB DVT Prophylaxis Heparin SQ Full Code as per discussion with pt Follows with Dr Ghosh and [facility] for routine care Pt was seen and care coordinated with Dr Salguero. See addendum History of Present Illness Chief Complaint: Chest pain Primary Care Provider: Ernesto Ghosh MD Patient is 72-year-old male with PMH CAD s/p stent, HTN, HLD, interstitial lung disease presented to ER with intermittent c/o chest pressure x couple of days. Patient states past 3 days intermittent chest pressure. Also having burping. Took Tums and would ease the chest pressure and then had increased belching. He also had some flatulence. Denies any SOB, dizziness, palpitations, diaphoresis, nausea, vomiting associated with this. Chest pressure can occur at rest or exertion. Last night woke out of sleep with chest pressure. He feels this chest pressure is similar to past chest pain that required stent however did not have SOB this time. This morning had episode of loose stool. Has chronic cough in morning without significant change. Denies fever/chills, diaphoresis, MARIE, syncope, vision changes, neck pain, orthopnea, sore throat, choking, otalgia, rhinorrhea, abdominal pain, paresthesias, weakness, extremity edema, rashes, urinary symptoms. Allergies Allergy/AdvReac Type Severity Reaction Status Date / Time No Known Allergies Allergy Unverified 10/28/22 16:49 Home Medications Medication Instructions Recorded Confirmed Type aspirin 81 mg tablet,delayed 81 mg PO DAILY 10/28/22 10/28/22 History release coenzyme Q10 100 mg capsule 100 mg PO DAILY 10/28/22 10/28/22 History (CoQ-10) multivitamin (Multiple Vitamins 1 tab PO DAILY 10/28/22 10/28/22 History tablet) ramipril 2.5 mg capsule 2.5 mg PO QAM 10/28/22 10/28/22 History rosuvastatin 20 mg tablet 20 mg PO PM 10/28/22 10/28/22 History Past Med/Surg History Medical History (Updated 10/28/22 @ 17:41 by Deja Desai PA-C) Chronic interstitial lung disease Coronary artery disease Cough Dyslipidemia History of renal calculi Surgical History H/O heart artery stent Status post coronary artery stent placement Status post vasectomy Family History Mother Myocardial infarction Father Myocardial infarction Sister Myocardial infarction Brother Coronary heart disease Social History Smoking Status: Never smoker Hx Alcohol Use: Yes Alcohol Intake Frequency: Monthly or Less Hx Substance Use: No Preferred Language: Vietnamese Communication Ability: Effective Beliefs That Will Affect Care: None Current Living Situation: Spouse Feels Safe at Home: Yes Assistive Devices: Glasses Review of Systems Review of Systems: All systems reviewed & are unremarkable except as noted in HPI & below Physical Exam Physical Exam: General: no distress, WDWN Head: normocephalic, atraumatic Eyes: conjunctiva non-injected, anicteric ENT: normal inspection external ears, nose, mucous membranes moist Neck: supple, trachea midline Lungs: clear, no respiratory distress, no wheezing/rhonchi/rales CV: RRR, no murmur, no pretibial edema; chest wall without tenderness to palpat ion Abd: normal BS, soft, non-tender Ext: no cyanosis, no calf tenderness Neuro: A&O x 3, no focal deficits noted, normal affect Skin: warm, dry Results & Data Results & Data ([facility]) Vital Signs (Past 12 Hours) Vital Signs Temp Pulse Pulse Resp BP Pulse Ox O2 Del Method 10/28/22 14:34 145/88 H 10/28/22 14:34 73 23 10/28/22 14:33 68 14 10/28/22 14:35 71 10/28/22 14:09 75 20 98 Room Air 10/28/22 14:09 Room Air 10/28/22 14:09 36.6 C 77 22 180/93 H 99 Room Air Laboratory Results Short CBC 10/28/22 Range/Units 14:21 WBC 7.24 (4.8-10.8) K/ul Hgb 15.3 (14.0-18.0) g/dl Hct 45.6 (42.0-52.0) % Plt Count 230 (130-400) K/uL BMP 10/28/22 14:21 Sodium 139 Potassium 4.2 Chloride 105 Carbon Dioxide 27 BUN 11 Creatinine 0.73 Glucose 114 H Calcium 9.7 Liver Function 10/28/22 Range/Units 14:21 Total Bilirubin 0.5 (0.2-1.0) mg/dl AST 23 (13-39) U/L ALT 21 (7-52) U/L Alkaline Phosphatase 82 (34-104) U/L Albumin 4.6 (3.4-5.0) gm/dl Diagnostic Findings Abdomen/Pelvis CT 10/28/22 14:23 CT SCAN OF THE ABDOMEN AND PELVIS WITH IV CONTRAST CLINICAL HISTORY: Upper abdominal pain. COMPARISON STUDY: Abdominal radiographs dated 10/29/2016 TECHNIQUE: Following the IV administration of 85 cc of Optiray 350, CT scan of the abdomen and pelvis is performed from the lung bases to the proximal femora. Images are reviewed in the axial, sagittal, and coronal planes. IV contrast was administered without complication. A dose lowering technique was utilized adhering to the principles of ALARA. CT DOSE: 692.31 mGy.cm FINDINGS: Lung bases: The heart is top normal in size and without pericardial effusion. The coronary arteries are densely calcified. Calcified mediastinal lymph nodes are partially visualized. Advanced emphysema is noted. There is patchy airspace consolidation in the lingula. Scattered calcified granulomas are observed. Scarring/atelectasis is noted at both lung bases. No pleural effusion is identified. Postoperative change is suggested at the right lung base. There is a tiny hiatal hernia. Liver: The contrast-enhanced liver is normal in size, contour, and attenuation. There is no intrahepatic biliary ductal dilatation. The hepatic veins and portal veins are patent. Gallbladder: Unremarkable. Spleen: Normal in size and attenuation. Pancreas: Unremarkable. Adrenal glands: Unremarkable. Kidneys: The contrast enhanced kidneys are normal in size and without hydronephrosis. There is a punctate nonobstructing right renal calculus. No left renal calculi are identified and there is no ureteral stone. Renal sinus cysts are seen on the left. The kidneys enhance symmetrically. A circumaortic left renal vein is incidentally noted. Abdominal vasculature: The abdominal aorta is normal in course and caliber noting moderate to advanced atherosclerotic calcification. Bowel: There is moderate colonic diverticulosis without CT evidence of acute diverticulitis. No bowel obstruction is seen. Mild fecal retention is seen throughout the colon. The appendix is well-visualized and normal. Peritoneum: There is no intraperitoneal free air or abdominal ascites. There is a small fat-containing umbilical hernia. Lymphadenopathy: None. Pelvic viscera: The prostate gland is mildly enlarged and heterogeneous. The bladder wall appears thickened/trabeculated indicating chronic outlet obstruction. Skeletal structures: The skeletal structures are osteopenic. Moderate lumbosacral spondylosis is observed. Degenerative change is noted in the sacroiliac joints. No lytic or blastic lesions are seen. 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 IMPRESSION: 1. No acute infectious or inflammatory findings are identified in the abdomen or pelvis. 2. There is patchy airspace consolidation in the lingula, likely representing a mild pneumonia. Clinical correlation will be required and radiographic follow-up to resolution is recommended. 3. Advanced emphysema. 4. Colonic diverticulosis without CT evidence of acute diverticulitis. 5. Punctate nonobstructing right renal calculus. 6. Advanced coronary artery atherosclerosis. 7. 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 8. Additional findings as above. ACT 112: Negative or not required by law. Electronically signed by: Haris Upton M.D. 10/28/2022 3:57 PM Chest X-Ray 10/28/22 14:24 SINGLE VIEW CHEST CLINICAL HISTORY: Atypical chest pain. FINDINGS: An AP, portable, upright chest radiograph is compared to study dated 10/03/2018. The heart is enlarged. There is mild pulmonary vascular congestion. Interstitial thickening in the mid to lower lungs suggests mild interstitial edema. There is moderate chronic elevation of the right hemidiaphragm with bibasilar atelectasis. No large pleural effusion or pneumothorax is seen. The skeletal structures are osteopenic. The bony thorax is grossly intact. IMPRESSION: Cardiomegaly with evidence of mild congestive failure. Clinical correlation will be required and radiographic follow-up to resolution is recommended. ACT 112: Negative or not required by law. Electronically signed by: Haris Upton M.D. 10/28/2022 2:51 PM Supervising Physician Co-Signing Physician Notes History and physical exam performed by me. History notable for 72-year-old man with history of CAD status post stent presents with intermittent chest pressure over the past couple of days. Reported chest pressure central, not referred. Reported that it reminded him of when he got the stent but also different in that it was associated with gas with some mild improvement with Tums. Physical exam unremarkable. Labs grossly unremarkable. Troponin normal Chest x-ray noted cardiomegaly with mild congestion. Chest pain is atypical. Reviewed EKG with chemist intern. Has PACs. Chest pain is atypical and may be GI related. However, in view of cardiac hx We will trend troponin and keep overnight for telemetry monitoring and further evaluation. NPO PMN in case needs further cardiac eval. PPI po BID Other plans as detailed by Deja Desai PA-C
--- NOTE | 2022-10-28 17:43 | Electrocardiogram Report ---
Test Reason : Blood Pressure : / mmHG Vent. Rate : 081 BPM Atrial Rate : 122 BPM P-R Int : 000 ms QRS Dur : 082 ms QT Int : 368 ms P-R-T Axes : 038 028 075 degrees QTc Int : 427 ms sinus rhythm with Premature supraventricular complexes Abnormal ECG When compared with ECG of 04-OCT-2018 06:55, Premature supraventricular complexes are now Present Nonspecific T wave abnormality no longer evident in Inferior leads Confirmed by Zachery Harp ([id number]) on 10/28/2022 5:43:24 PM Referred By: Confirmed By:Olvin Harp
[2022-10-28] MEDS ORDERED: NITROGLYCERIN SL 0.4 MG/TAB TAB SL PRN (19:04)
[2022-10-28] MEDS ORDERED: ACETAMINOPHEN 325 MG TAB PO PRN (19:04)
[2022-10-28] MEDS ORDERED: POLYETHYLENE (MIRALAX) 17 GM PACK PO PRN (19:04)
[2022-10-28] MEDS: PANTOprazole 40 MG in SYRINGE 0 ML IV SCH (20:27)
[2022-10-28] MEDS: HEPARIN SOD 5,000 UNIT/0.5 ML VIAL SQ SCH (20:27)
[2022-10-28] MEDS ORDERED: ROSUVASTATIN CALCIUM 20 MG TAB PO SCH (21:00)
[2022-10-29 04:01] LABS: Hematocrit (blood only) 42.8 % (42.0-52.0); Hemoglobin 14.6 g/dl (14.0-18.0); Mean Corpuscular Hemoglobin 29.4 pg (25.0-34.0); Mean Corpuscular Hgb Conc 34.1 g/dL (32.0-36.0); Mean Corpuscular Volume 86.3 fL (80.0-100.0); Mean Platelet Volume 8.5 fL (9.4-12.4); Platelet Count 216 K/uL (130-400); RDW Coefficient of Variation 12.7 % (11.5-14.5); RDW Standard Deviation 39.6 fL (36.4-46.3); Red Blood Count 4.96 M/uL (4.70-6.10); White Blood Count 6.64 K/ul (4.8-10.8)
[2022-10-29 04:22] LABS: BUN Creatinine Ratio 11.8 (10-20); Calcium 9.3 mg/dl (8.5-10.1); Chol HDL Ratio 2.9 (0-5); Est GFR (African American) 93.4 ml/min; Est GFR (Non-African American) 80.6 ml/min; Potassium 4.1 mmol/L (3.5-5.1)
[2022-10-29 04:27] LABS: Troponin I High Sensitivity 7.6 pg/ml (0-20)
[2022-10-29] MEDS ORDERED: ENALAPRIL MALEATE 10 MG TAB PO SCH (09:00)
[2022-10-29] MEDS ORDERED: ASPIRIN 81 MG ECTAB PO SCH (09:00)
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
[2022-10-29] MEDS: PANTOprazole 40 MG in SYRINGE 0 ML IV SCH (09:27)
[2022-10-29] MEDS: HEPARIN SOD 5,000 UNIT/0.5 ML VIAL SQ SCH (09:28)
[2022-10-29] MEDS ORDERED: METOPROLOL TARTRATE 1 MG/ML VIAL IV ONE (10:26)
[2022-10-29] MEDS ORDERED: ATROPINE SULFATE 0.1 MG/ML 10ML SYR IV ONE (10:26)
[2022-10-29] MEDS ORDERED: DOBUTamine HCL 12.5 MG/ML 20 ML VIAL IV ONE (10:26)
--- NOTE | 2022-10-29 11:01 | Electrocardiogram Report ---
Test Reason : Blood Pressure : / mmHG Vent. Rate : 088 BPM Atrial Rate : 088 BPM P-R Int : 216 ms QRS Dur : 084 ms QT Int : 366 ms P-R-T Axes : 063 065 088 degrees QTc Int : 442 ms Sinus rhythm with 1st degree A-V block Nonspecific ST abnormality Abnormal ECG When compared with ECG of 28-OCT-2022 14:09, Previous ECG has undetermined rhythm, needs review Confirmed by Zachery Harp ([id number]) on 10/29/2022 11:01:17 AM Referred By: [facility] Confirmed By:Olvin Harp
--- NOTE | 2022-10-29 11:24 | Electrocardiogram Report ---
Test Reason : Blood Pressure : / mmHG Vent. Rate : 065 BPM Atrial Rate : 065 BPM P-R Int : 238 ms QRS Dur : 082 ms QT Int : 396 ms P-R-T Axes : 062 030 077 degrees QTc Int : 411 ms Sinus rhythm with 1st degree A-V block Otherwise normal ECG When compared with ECG of 28-OCT-2022 15:49, (unconfirmed) ST no longer depressed in Lateral leads Confirmed by Zachery Harp ([id number]) on 10/29/2022 11:24:02 AM Referred By: [facility] Confirmed By:Olvin Harp
--- NOTE | 2022-10-29 11:31 | Communication Note ---
Date of Service: October 29, 2022 The patient had a negative dobutamine stress echocardiogram study today. No additional cardiac testing at this time. The patient can be discharged per the hospitalist service.
[2022-10-29] MEDS ORDERED: PERFLUTREN LIPID MICROSPHERE (DEFINITY) IV ONE (11:39)
--- NOTE | 2022-10-29 13:23 | Discharge Summary ---
Discharge Summary Date of Service October 29, 2022 Admission HPI Per Admitting Provider Patient is 72-year-old male with PMH CAD s/p stent, HTN, HLD, interstitial lung disease presented to ER with intermittent c/o chest pressure x couple of days. Patient states past 3 days intermittent chest pressure. Also having burping. Took Tums and would ease the chest pressure and then had increased belching. He also had some flatulence. Denies any SOB, dizziness, palpitations, diaphoresis, nausea, vomiting associated with this. Chest pressure can occur at rest or exertion. Last night woke out of sleep with chest pressure. He feels this chest pressure is similar to past chest pain that required stent however did not have SOB this time. This morning had episode of loose stool. Has chronic cough in morning without significant change. Denies fever/chills, diaphoresis, MARIE, syncope, vision changes, neck pain, orthopnea, sore throat, choking, otalgia, rhinorrhea, abdominal pain, paresthesias, weakness, extremity edema, rashes, urinary symptoms. Principal Dx & Hospital Course #1 = Principal Diagnosis (1) Chest pain: (2) Coronary artery disease: Patient is 72-year-old male with PMH CAD s/p stent, HTN, HLD, interstitial lung disease presented to ER with intermittent c/o chest pressure,belching x couple of days. In ER vitals stable. In ER had episode of chest pressure that self resolved in a few minutes. Repeat EKG reviewed and interpreted by myself with HR, 88, sinus rhythm first-degree AV block, ST depression anterior lateral leads which are new compared to initial EKG obtained at 2 PM today. Initial high sensitivity troponin: 7.1. Repeat 2 hours later 7.6 R/O ACS. Risk factors: CAD, HLD, FH CAD. DDX: GERD In ER given 324mg aspirin, Protonix IV No current chest pain Repeat EKG in am Will trend troponin Echo Lipid panel in am, continue rosuvastatin Continue aspirin Nitro prn CP and repeat EKG for CP Cardiology consult Will start Protonix BID for now (3) Dyslipidemia: Continue rosuvastatin (4) Chronic interstitial lung disease: Chronic cough. Denies increased SOB DVT Prophylaxis Heparin SQ Full Code as per discussion with pt Follows with Dr Ghosh and [facility] for routine care Pt was seen and care coordinated with Dr Salguero. See addendum Updated Medication List Medication Instructions Recorded Confirmed Type aspirin 81 mg tablet,delayed 81 mg PO DAILY 10/28/22 10/28/22 History release coenzyme Q10 100 mg capsule 100 mg PO DAILY 10/28/22 10/28/22 History (CoQ-10) multivitamin (Multiple Vitamins 1 tab PO DAILY 10/28/22 10/28/22 History tablet) ramipril 2.5 mg capsule 2.5 mg PO QAM 10/28/22 10/28/22 History rosuvastatin 20 mg tablet 20 mg PO PM 10/28/22 10/28/22 History Hospital Stay Data Consultations 10/28/22 16:17 ED Decision to Admit Stat 10/28/22 17:25 Consult Cardiology Routine Diagnostic Imagining Performed 10/28/22 14:23 CT abd pelvis IV con only Stat Pending Results Patient Have Any Pending Studies at Discharge: No Discharge Instructions Given to Patient (Per Discharging Provider) Please take all medications as instructed on discharge as below. You underwent a pharmacologic stress test during this admission which was negative, suggesting that your discomfort coming in was not related to your heart. If you experience any worsening chest discomfort or are concerned about your symptoms please return or seek immediate medical attention. Please follow-up with your primary care doctor as instructed on schedule above. This will be important to ensure you are chest discomfort has not returned. Additionally, there was an abnormal finding on your CT scan. In the left side of your lung there was some patchy airspace changes thought to represent a mild pneumonia. As you are not symptomatic for pneumonia this is considered to be artifact. However, if you develop respiratory symptoms please seek immediate medical attention to reevaluate if clinical pneumonia has developed. 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 This is a nontraumatic hip issue that can cause breakdown at the [id number] joint. If you are experiencing increased pain or decreased range of motion at this joint, treatment options are available. Please discuss further with your primary care doctor on follow-up. It was a pleasure taking care of you! Please call if you have any questions or problems. You can reach a [facility] hospitalist on duty at [facility] 24 hours a day by calling [phone]. Take care of yourself. Annamaria Mirza DO [facility] Hospitalist
== END 2022-10-29 14:11 | disposition home or self-care (01) ==
LOC: ED 14:05 → 2S 14:05 → SUATTDRO 17:09 → 2S 18:49